=== PATIENT | male | born 1995 ===

== ENCOUNTER → 2025-01-30 11:30 | Outpatient (REF) | payer OTHER, SELFPAY ==
--- NOTE | 2025-01-30 11:36 | ECG_ITS ---
Test Reason : R/O ARRHYTHMIA Blood Pressure : */* mmHG Vent. Rate : 49 BPM Atrial Rate : 49 BPM P-R Int : 166 ms QRS Dur : 92 ms QT Int : 410 ms P-R-T Axes : 40 70 40 degrees QTcB Int : 370 ms Sinus bradycardia Otherwise normal ECG No previous ECGs available Referred By: Tere Kitchen Electronically Signed By: ADALBERTO FRANCIS
--- OUTSIDE RECORDS SUMMARY | 2025-01-30 13:03 | XMS_ITS | Clinical Summary ---
Author Organization Unknown Care Team Providers Care Iphone Developer Name Role Phone JENSEN RAMOS, BRANDY Unavailable Unavailable ELISABET RN, ITZEL Unavailable Unavailable Payers Payer Name Policy Type Policy Number Effective Date Expira tion Date [facility] [place] [place] [facility] [id number] MEDICAID [facility] [id number] Problems Condition Name Condition Details Condition Category Status Onset Date Resolution Date Last Treatment Date Treating Clinician Comments BIPOLAR DISORD, CRNT EPISODE MANIC SEVERE W PSYCH FEATURES Active 11-06 00:00: 00 Allergies, Adverse Reactions, Alerts Allergy Name Allergy Type Status Severity Reaction(s) Onset Date Inactive Date Treating Clinician Comments NKA Propensity to adverse reactions Active 2024-10 12:16:1 5 Medications Ordered Medication Name Filled Medication Name Start Date Stop Date Current Medication? Ordering Clinician Indication Dosage Frequency Signature (SIG) Comments Components Aristada 441 mg/1.6 mL suspension, extend.rel. IM syringe 11-13 00:00: 00 Yes [id number] 441 mg MONTHLY 441 mg MONTHLY (route: intramuscu lar) Med Classific ation: Central Nervous System Agents benztropine 0.5 mg tablet 11-13 00:00: 00 Yes [id number] 1 tablet 2 TIMES DAILY 1 tablet 2 TIMES DAILY (route: oral) Med Classific ation: Central Nervous System Agents clonidine HCl 0.2 mg tablet 11-13 00:00: 00 12-17 23:59 :00 No [id number] 1 tablet 3 TIMES DAILY 1 tablet 3 TIMES DAILY (route: oral) Med Classific ation: Cardiovas cular Therapy Agents divalproex 500 mg tablet,suzy yed release 11-13 00:00: 00 12-27 23:59 :00 No [id number] 500 mg EVERY AM 500 mg EVERY AM (route: oral) Med Classific ation: Central Nervous System Agents divalproex 500 mg tablet,suzy yed release 11-13 00:00: 00 Yes [id number] 1000 mg BEDTIME 1000 mg BEDTIME (route: oral) Med Classific ation: Central Nervous System Agents ibuprofen 600 mg tablet 11-13 00:00: 00 Yes [id number] 1 tablet EVERY 6 HOURS 1 tablet EVERY 6 HOURS (route: oral) Med Classific ation: Analgesic , Anti-infl ammatory or Antipyret ic melatonin 3 mg tablet 11-13 00:00: 00 12-17 23:59 :00 No [id number] 9 mg BEDTIME 9 mg BEDTIME (route: oral) Med Classific ation: Central Nervous System Agents multivitami n with minerals tablet 11-13 00:00: 00 Yes [id number] 1 tablet DAILY 1 tablet DAILY (route: oral) Med Classific ation: Electroly te Balance-N utritiona l Products olanzapine 10 mg tablet 11-13 00:00: 00 12-17 23:59 :00 No [id number] 10 mg BEDTIME 10 mg BEDTIME (route: oral) Med Classific ation: Central Nervous System Agents Senna Lax 8.6 mg tablet 11-13 00:00: 00 Yes [id number] 2 tablet 2 TIMES DAILY 2 tablet 2 TIMES DAILY (route: oral) Med Classific ation: Gastroint estinal Therapy Agents Suboxone 4 mg-1 mg sublingual film 11-13 00:00: 00 Yes [id number] 1 film 2 TIMES DAILY 1 film 2 TIMES DAILY (route: sublingual ) Med Classific ation: Chemical Dependenc y, Agents to Treat clonidine HCl 0.1 mg tablet 12-17 00:00: 00 Yes [id number] 1 tablet 2 TIMES DAILY 1 tablet 2 TIMES DAILY (route: oral) Med Classific ation: Cardiovas cular Therapy Agents melatonin 3 mg disintegrat ing tablet 12-17 00:00: 00 Yes [id number] 3 tablet BEDTIME 3 tablet BEDTIME (route: oral) Med Classific ation: Central Nervous System Agents olanzapine 5 mg tablet 12-17 00:00: 00 12-27 23:59 :00 No [id number] 5 mg BEDTIME 5 mg BEDTIME (route: oral) Med Classific ation: Central Nervous System Agents olanzapine 7.5 mg tablet 12-27 00:00: 00 Yes [id number] 7.5 mg BEDTIME 7.5 mg BEDTIME (route: oral) Med Classific ation: Central Nervous System Agents sertraline 25 mg tablet 12-27 00:00: 00 Yes [id number] 25 mg DAILY 25 mg DAILY (route: oral) Med Classific ation: Central Nervous System Agents Vital Signs Vital Name Observation Time Observation Value Commen ts Temperature 2025-01-22 10:33:00.000 98 [degF] Temperature 2025-01-17 10:49:00.000 97.2 [degF] Temperature 2025-01-16 10:48:00.000 97.9 [degF] Pulse 2025-01-22 10:33:00.000 86 /min Pulse 2025-01-17 10:49:00.000 86 /min Pulse 2025-01-16 10:48:00.000 66 /min O2 Saturation (%) 2025-01-22 10:33:00.000 98 % O2 Saturation (%) 2025-01-17 10:49:00.000 98 % O2 Saturation (%) 2025-01-16 10:48:00.000 97 % Respirations 2025-01-22 10:33:00.000 18 /min Respirations 2025-01-17 10:49:00.000 18 /min Respirations 2025-01-16 10:48:00.000 18 /min Systolic Blood Pressure 2025-01-22 10:33:00.000 116 mm [Hg] Systolic Blood Pressure 2025-01-17 10:49:00.000 112 mm [Hg] Systolic Blood Pressure 2025-01-16 10:48:00.000 110 mm [Hg] Diastolic Blood Pressure 2025-01-22 10:33:00.000 74 mm [Hg] Diastolic Blood Pressure 2025-01-17 10:49:00.000 80 mm [Hg] Diastolic Blood Pressure 2025-01-16 10:48:00.000 86 mm [Hg] Plan of Treatment Planned Activity Planned Date Details Comments Future Scheduled Test SKILLED NU RSE TO EVALUATE PATIENT, IDENTIFY PRIMARY AND CO-MORBID CONDITIONS CODED PER CODING GUIDELINES, AND DEVELOP PATIENT SPECIFIC PLAN OF CARE THAT INCLUDES PATIENT GOAL FOR HOME HEALTH. [code = SKILLED NURSE TO EVALUATE PATIENT, IDENTIFY PRIMARY AND CO-MORBID CONDITIONS CODED PER CODING GUIDELINES, AND DEVELOP PATIENT SPECIFIC PLAN OF CARE THAT INCLUDES PATIENT GOAL FOR HOME HEALTH.] Future Scheduled Test SKILLED NU RSE TO PRE-POUR MEDICATION PER MEDICATION LIST (FREQUENCY). [code = SKILLED NURSE TO PRE-POUR MEDICATION PER MEDICATION LIST (FREQUENCY).] Future Scheduled Test PATIENT MA Y HAVE ONE SET OF EMERGENCY MEDICATION NOT TO BE PRE-POURED ANY SOONER THAN 24 HOURS BEFORE SEVERE INCLEMENT WEATHER OR EMERGENT EVENT AND FOLLOWING SKILLED NURSE EVALUATION OF PATIENT SAFETY. [code = PATIENT MAY HAVE ONE SET OF EMERGENCY MEDICATION NOT TO BE PRE-POURED ANY SOONER THAN 24 HOURS BEFORE SEVERE INCLEMENT WEATHER OR EMERGENT EVENT AND FOLLOWING SKILLED NURSE EVALUATION OF PATIENT SAFETY.] Future Scheduled Test SKILLED NU RSE TO O/A OF PATIENTS MENTAL/BEHAVIORAL STATUS, ASSESS VITAL SIGNS (FREQUENCY OF VS), ALLOW 2 PRNS FOR MEDICATION MANAGEMENT. [code = SKILLED NURSE TO O/A OF PATIENTS MENTAL/BEHAVIORAL STATUS, ASSESS VITAL SIGNS (FREQUENCY OF VS), ALLOW 2 PRNS FOR MEDICATION MANAGEMENT.] Future Scheduled Test SKILLED NU RSE FOR O/A OF ALTERED MOOD [code = SKILLED NURSE FOR O/A OF ALTERED MOOD] Future Scheduled Test SKILLED NU RSE FOR O/A OF GENERAL HEALTH STATUS OF PAIN, CARDIAC, RESPIRATORY, GASTROINTESTINAL, GENITOURINARY, SKIN, NEUROLOGIC, ENDOCRINE SYSTEMS TO IDENTIFY CHANGES ASSOCIATED WITH EXACERBATION FOR EARLY INTERVENTION OF COMPLICATIONS WEEKLY. [code = SKILLED NURSE FOR O/A OF GENERAL HEALTH STATUS OF PAIN, CARDIAC, RESPIRATORY, GASTROINTESTINAL, GENITOURINARY, SKIN, NEUROLOGIC, ENDOCRINE SYSTEMS TO IDENTIFY CHANGES ASSOCIATED WITH EXACERBATION FOR EARLY INTERVENTION OF COMPLICATIONS WEEKLY.] Future Scheduled Test SKILLED NU RSE TO ASSESS PATIENTS PSYCHOSOCIAL STATUS TO IDENTIFY POTENTIAL ISSUES THAT MAY COMPLICATE THE PROVISION OF THE PLAN OF CARE INCLUDING THE PATIENTS ABILITY TO ACCESS COMMUNITY RESOURCES AND PSYCHOSOCIAL SUPPORT SERVICES. [code = SKILLED NURSE TO ASSESS PATIENTS PSYCHOSOCIAL STATUS TO IDENTIFY POTENTIAL ISSUES THAT MAY COMPLICATE THE PROVISION OF THE PLAN OF CARE INCLUDING THE PATIENTS ABILITY TO ACCESS COMMUNITY RESOURCES AND PSYCHOSOCIAL SUPPORT SERVICES.] Future Scheduled Test SN TO INST RUCT CAREGIVER ON MANAGEMENT OF DEMENTIA UTILIZING THE MEANINGFUL CARE SPECIALTY PROGRAM. [code = SN TO INSTRUCT CAREGIVER ON MANAGEMENT OF DEMENTIA UTILIZING THE MEANINGFUL CARE SPECIALTY PROGRAM.] Future Scheduled Test SKILLED NU RSE WILL MAINTAIN SITUATIONAL AWARENESS FOR SAFETY AND WILL NOTIFY CLINICAL SEISMOGRAPHER AND PHYSICIAN/PROVIDER WITH ANY CHANGE IN CONDITION. [code = SKILLED NURSE WILL MAINTAIN SITUATIONAL AWARENESS FOR SAFETY AND WILL NOTIFY CLINICAL SEISMOGRAPHER AND PHYSICIAN/PROVIDER WITH ANY CHANGE IN CONDITION.] Goal 2025-01-08 Patient Goal - REDUCE MY ANX IETY Goal Patient Goal - REDUCE MY ANX IETY Goal Provider Goal - A PLAN OF CARE WILL BE ESTABLISHED THAT MEETS PATIENT'S [facility] NEEDS AND INCLUDES PATIENT GOAL FOR HOME HEALTH. Goal Provider Goal - PATIENT WILL COMPLY WITH MEDICATION WHEN SKILLED NURSE PRE-POURS MEDICATION THROUGHOUT CERTIFICATION PERIOD. Goal Provider Goal - MEDICATION WILL BE AVAILABLE DURING INCLEMENT WEATHER OR EMERGENT EVENT THROUGHOUT CERTIFICATION PERIOD. Goal Provider Goal - ALTERED MENTAL/BEHAVIORAL STATUS WILL BE IDENTIFIED PROMPTLY AND INTERVENTION INITIATED QUICKLY TO MINIMIZE ASSOCIATED RISKS THROUGHOUT CERTIFICATION PERIOD. Goal Provider Goal - PATIENT WILL BE ABLE TO PERFORM DAILY FUNCTIONS AND HAVE OPTIMAL IMPROVEMENT IN MOOD STABILITY THROUGHOUT CERTIFICATION PERIOD. Goal Provider Goal - CHANGE IN GENERAL HEALTH STATUS WILL BE IDENTIFIED AND REPORTED TO PHYSICIAN FOR PROMPT INTERVENTION TO MINIMIZE ASSOCIATED RISKS THROUGHOUT CERTIFICATION PERIOD. Goal Provider Goal - PSYCHOSOCIAL NEEDS WILL BE IDENTIFIED AND PLAN IMPLEMENTED TO MINIMIZE RISK THROUGHOUT CERTIFICATION PERIOD. Goal Provider Goal - CAREGIVER WILL DEMONSTRATE MANAGEMENT AND UNDERSTANDING OF DEMENTIA A RESULT OF PARTICIPATION IN THE MEANINGFUL CARE SPECIALTY PROGRAM. Goal Provider Goal - PATIENT WILL REMAIN SAFE IN THE COMMUNITY AND WILL BE FREE OF DANGER TO SELF AND OTHERS THROUGHOUT THE CERTIFICATION PERIOD. Progress Notes Progress Notes <paragraph>[Visit Date: 2024 by ITZEL BHANDARI RN]:</paragraph><paragraph>5 ARISTADA INJECTION GIVEN LEFT DELTOID WITHOUT ISSUE.</paragraph> <paragraph>[Visit Date: 2024 by ITZEL BHANDARI RN]:</paragraph><paragraph>PT WILL BE ATTENDING PARTIAL HOSPITALIZATION PROGRAM 9-2 PM STARTING PT FORGOT ABOUT NURSE VISIT AND WAS SLEEPING WHEN NURSE ARRIVED. PT MOOD GAURDED, QUESTIONING WHY NURSE WAS ASKING SO MANY QUESTIONS. NURSE EXPLAINED TO PT THAT EMOTIONAL AND BEHAVIORAL ASSESSMENT WAS BEING PERFORMED. PT INFORMED NURSE THAT HE WAS STARTING PARTIAL HOSPITALIZATION PROGRAM NEXT WEEK.</paragraph> Encounters Start Date/Time End Date/Time Encounter Type Admission Type Attending [facility] Facility Care Department Encounter ID Discharge Date Discharge Status Discharge Condition Discharge Reason Percent Goals Met 2025-01-12 00:00:00 2025-03-12 00:00:00 Outpatient ITZEL GUERRA [facility] [id number]
--- OUTSIDE RECORDS SUMMARY | 2025-01-30 13:04 | XMS_ITS | Patient Health Record ---
Author Organization Jose Grossman III, MD Address [address] [place] [address] Care Team Providers Care Manager Regulatory Name Role Phone GrossmanJose sawyer Unavailable [phone] Reason For Referral No Information Encounters Encounter Location Date Provider Diagnosis Jose Grossman III, MD [address] [place] [address] [place] [address] 01/27/2025 Jose Grossman Plan Of Treatment Next Appt Details Provider Name:Jose Grossman, 04/01/2025 02:00:00 PM, [address] [place] [address] YV[address] GONZALEZ, [place], [address], Insurance Providers Payer Name Payer Address Payer Phone Subscriber Number Group Number Insured Name Patient Relationship to Insured Coverage Start Date Coverage End Date MEDICAID [place] [address] [place] [id number] Shoaib Mclaughlin Self - patient is the insured
--- OUTSIDE RECORDS SUMMARY | 2025-01-30 13:04 | XMS_ITS | Clinical Summary ---
Author Organization [facility] Address [address] [place] [address] Care Team Providers Care Financial Analyst Name Role Phone Patient, Has No Pcp Or Ref Primary Care Provider Unavailable Allergies No known active allergies Medications * This document contains information received from the source organization and may not represent a complete record from that organization. No known medications Social History Tobacco Use Types Packs/Day Years Used Date Smoking Tobacco: Every Day Smokeless Tobacco: Never Alcohol Use Standard Drinks/Week Comments Not Currently 0 (1 standard drink = 0.6 oz pur e alcohol) in detox Sex and Gender Information Value Date Recorded Sex Assigned at Not on file Legal Sex Male 10:17 AM EST Gender Identity Not on file Sexual Orientation Not on file Last Filed Vital Signs Vital Sign Reading Time Taken Comments Blood Pressure 113/71 11/27/2021 11:04 AM EST Pulse 66 11/27/2021 11:04 AM EST Temperature 36.9 ??C (98.5 ??F) 11/27/2021 11:[address] Respiratory Rate 18 11/27/2021 11:04 AM EST Oxygen Saturation 98% 11/27/2021 11:04 AM EST Inhaled Oxygen Concentration - - Weight 88.5 kg (195 lb) 11/27/2021 11:04 AM EST Height 180.3 cm (5' 11 ) 11/27/2021 11:04 AM EST Body Mass Index 27.2 11/27/2021 11:04 AM EST Plan of Treatment Health Maintenance Due Date Last Done Comments HIV Screening 1993 Hepatitis B Vaccines (4 of 4 - 4-dose series) 02/16/1994 1993, 1993, 1993 Varicella Vaccines (1 of 2 - 13+ 2-dose series) 2006 Pneumococcal Vaccine: Pediat ameya (0-5 Years) and At-Risk Patients (6-50 Years) (1 of 2 - PCV) 2012 COVID-19 Vaccine (1 - 2023-2 5 season) 2024 Alcohol/Substance Use Screening 09/25/2024 Influenza Vaccine (Season Ended) 2025 07/20/2009, 07/12/2008, 07/13/2007 DTaP,Tdap,and Td Vaccines (9 - Td or Tdap) 04/27/2031 04/27/2021, 10/24/2018, 08/27/2008, Additional history exists RSV Vaccine (60+ years old a nd patients) (1 - 1-dose 75+ series) 2068 Insurance [employer] Care Teams Financial Analyst Relationship Specialty Start Date End Date Patient, Has No Pcp Or Ref DO NOT EDIT THIS RECORD VIA PROVIDER ON THE FLY PCP - General Nutrition Professor 10/30/21
--- OUTSIDE RECORDS SUMMARY | 2025-01-30 13:04 | XMS_ITS | Encounter Summary ---
Author Organization [facility] Address [address] [place], [place] [address] Phone Care Team Providers Care Corrosion Control Technician Name Role Phone Unavailable Primary Care Provider Unavailabl e Encounter Details Date Type Department Care Team (Late st Contact Info) Description 10/14/2009 Documentation [facility] Family Medicine [address] [place] [address] Family Medicine, Physician [address] [place] [address] Social History Tobacco Use Types Packs/Day Years Used Date Smoking Tobacco: Never Assessed Sex and Gender Information Value Date Recorded Sex Assigned at Not on file Legal Sex Male 6:11 PM EDT Gender Identity Not on file Sexual Orientation Not on file documented as of this encounter Plan of Treatment Not on file documented as of this encounter Visit Diagnoses Not on filedocumented in this encounter
--- OUTSIDE RECORDS SUMMARY | 2025-01-30 13:04 | XMS_ITS ---
Author Organization Jose Grossman III, MD Address [address] [address] Care Team Providers Care Psychology Fellow Name Role Phone Jose Grossman [facility] [phone] REASON FOR VISIT Updated Address Encounters Encounter Location Date Provider Diagnosis Jose Grossman III, MD [address] [place] [address] [place] [address] 01/27/2025 Jose Grossman Plan Of Treatment Next Appt Details Provider Name:Jose Grossman, 04/01/2025 02:00:00 PM, [address] [place] [address] YV[address] GONZALEZ, [place], [address], Progress Notes * KELVIN CARLRAYRAY ShoaibDOB: [birth year] (29 yo M)Acc No.[id number]:01/27/2025 Patient:?Shoaib MCLAUGHLIN :1995???Age:29 Y???Sex:Male Phone: Address:[address], [place], [address] * true * Date:? Generated for Robert sands/Emeli/eTransmitting on:?01/30/2025 01:03 PM EDT
--- OUTSIDE RECORDS SUMMARY | 2025-01-30 13:04 | XMS_ITS | Referral Summary ---
Author Organization [facility] Address [address] [place] [address] Care Team Providers Care Certified Fraud Examiner Name Role Phone Patient, Has No Pcp [...] 11/27/2021 11:04 AM EST Plan of Treatment [place] [id number] [employer] Care Teams Certified Fraud Examiner Relationship Specialty Start Date End Date Patient, Has No Pcp Or Ref DO NOT EDIT THIS RECORD VIA PROVIDER ON THE FLY PCP - General Print Shop Assistant 10/30/21
--- OUTSIDE RECORDS SUMMARY | 2025-01-30 13:04 | XMS_ITS | Data Portability ---
Author Organization [place] [facility], Allergy Address [address] [address] Assessment Encounter Date Assessment Date Assessment LastModified by Organization Details LastModified Time 03/06/2024 03/06/2024 Patient came for a third opinion regarding right angle of mandible mass. He has previously seen my colleague Dr. Ceballos, he has had a second opinion with nursing informatics clinical analyst in [place] Dr. Cruz and we are all in agreement that he does not have any irregular mass in the right angle of mandible, parotid tissue. 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 I do not believe this is corroborated by any of his imaging studies although his MRI that was performed in [place] is not available for my review today. I explained with diagrams the location of Stensen's duct that corresponds to the nodules he feels over his masseter muscle just anterior to his parotid. I would strongly recommend he follow-up with his primary care provider and seek psychiatric consultation as he appears to be unable to except multiple similar medical opinions [email or web address] Not available 03/06/2024 16:12:35 Plan of Treatment Reminders Order Date Submit Date Provider Last Modified By Organization Details Last Modified Time Details Appointments None record ed. Lab None record ed. Referral None record ed. Procedures None record ed. Surgeries None record ed. Imaging None record ed. Medication Orders None record ed. Patient TargetsNo targets recorded. Patient InstructionsNo instructions recorded. Reason for Referral None Reported. Results Created Date Observation Date Name Description Value Unit Range Abnormal Flag Note LastModifiedBy Organization Detail LastModifiedTime 05/15/2003/09/2023 imagi ng/di agnos tic resul t No observ ation record ed. [email or web address] Not Available 00:50:14 Result Notes None recorded. 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 - [facility] 16:10:42 Problem Notes None recorded. Procedures Surgical History None recorded. Imaging Results Imaging Date Name Status LastModified by Organiz ation Details LastModified Time 03/09/2023 imaging/diag nostic result completed [email or web address] Information not available 05/15/2024 00:50:14 Procedure Notes None recorded. Medical Equipment None Reported. Medications Name Sig Start Date Stop Date Status Note LastModified by Organization Details LastModified Time clonidine HCl 0.1 mg tablet TAKE 1 TABLET BY MOUTH TWICE A DAY NEEDED active Not Available Not Available No t Available trazodone 50 mg tablet TAKE 1 TABLET BY MOUTH AT BEDTIME NEEDED active Not Available Not Available No t Available ibuprofen 800 mg tablet TAKE 1 TABLET BY MOUTH THREE TIMES A DAY NEEDED FOR PAIN active Not Available Not Available No t Available hydroxyzine pamoate 50 mg capsule TAKE 1 CAPSULE BY MOUTH 3 TIMES A DAY NEEDED FOR ANXIETY active Not Available Not Available No t Available olanzapine 2.5 mg tablet TAKE 1 TABLET BY MOUTH EVERYDAY AT BEDTIME active Not Available Not Available No t Available methocarbamol 750 mg tablet TAKE 1 TABLET BY MOUTH EVERY 8 HOURS NEEDED FOR MYALGIAS active Not Available Not Available No t Available Suboxone 8 mg-[address] FILMS UNDER THE TONGUE DAILY active Not Available Not Available No t Available Suboxone 4 mg-1 mg sublingual film DISSOLVE 1 FILM UNDER TONGUE ONCE A DAY active Not Available Not Available No t Available Vitals Date Recorded Body height Body mass index (BMI) Body weight Provider Name and Address Organization Details Last Updated DateTime 03/06/2024 180.34 cm 30.7 kg/m2 44717.32 g Hermelinda Ramon [place] [facility] 03/06/2024 15:31:05 Social History None recorded. Functional Status None recorded. Mental Status None recorded. Family History Nothing Reported. Medical History No medical history recorded. Past Encounters Encounter ID Performer Location Encounter Start Date Encounter Closed Date Diagnosis/Indication Diagnosis SNOMED-CT Code Diagnosis ICD10 Code Diagnosis Note [id number] PEGGY KEENE MD [facility] [address] [address] 03/06/2024 15:10:15 03/06/2024 16:15:21 Facial swelling 845377070 R22.0 Health Concerns Section Related Observation LastModified by Organization Detai ls LastModified Time None Recorded Concern Status LastModified by Organization Details LastModified Time None Recorded Advance Directives Directive None Recorded Payers Insurance Date Sequence Insurance Name Policy Number Policy Lr Covered Member ID Lr Member ID Guarantor Name 04/23/2024 1 [facility]ALTH NET PLAN (MEDICAID HMO) [id number] Shoaib Muñoz [id number] Shoaib Muñoz Notes Date Note Type Note Provider Name and Address Organization Details Recorded Time 03/06/2024 text/html Around 10/2022 no felipe a lump behind right angle of jaw. Patient of Dr. 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 Over time he has begun to appreciate enlargement of the right parotid gland. He was last evaluated by Dr. 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 He underwent an additional imaging study 09/10/2023 CT facial with contrast at [facility] with atrophic left parotid gland and normal right parotid gland. 09/2023 MRI [facility] - results not available - was told it is inconclusive no pain in the neck,feels substantially larger PEGGY KEENE MD [address] [place] [address], [place], [address], [facility] - [facility] 03/06/2024 16:13:07
--- OUTSIDE RECORDS SUMMARY | 2025-01-30 13:04 | XMS_ITS | Clinical Summary ---
Author Organization [facility] Address [address] [place] [address] Care Team Providers Care Operational Risk Manager Name Role Phone Unavailable Primary Care Provider Unavailabl e Allergies No known active allergies Medications oxyCODONE (OXY-IR) 5 MG capsule Take 1 capsule (5 mg total) by mouth 4 times daily (every 6 hours) as needed for severe pain. Max Daily Amount: 20 mg 12 capsule 04/27/2021 Active ibuprofen (MOTRIN) 800 mg tabletIndicatio ns:Facial laceration, initial encounter Take 1 tablet (800 mg total) by mouth 4 times daily (every 6 hours) as needed for mild pain. 30 tablet 04/30/2021 Active acetaminophen (TYLENOL) 500 MG tabletIndicatio ns:Facial laceration, initial encounter Take 1 tablet (500 mg total) by mouth 4 times daily (every 6 hours) as needed for mild pain. 30 tablet 04/30/2021 Active cephalexin (KEFLEX) 500 MG capsuleIndicati ons:Facial laceration, initial encounter Take 1 capsule (500 mg total) by mouth 3 (three) times a day. 21 capsule 04/30/2021 Active Immunizations Immunization Administration Dates Next Due Tdap 04/27/2021 Social History Tobacco Use Types Packs/Day Years Used Date Smoking Tobacco: Never Assessed Sex and Gender Information Value Date Recorded Sex Assigned at Not on file Legal Sex Male 2:44 PM EDT Gender Identity Not on file Sexual Orientation Not on file Last Filed Vital Signs Vital Sign Reading Time Taken Comments Blood Pressure 149/90 04/27/2021 9:29 PM EDT Pulse 81 04/27/2021 9:29 PM EDT Temperature 36.2 ??C (97.1 ??F) 04/27/2021 7:38 PM ED T Respiratory Rate 16 04/27/2021 7:38 PM EDT Oxygen Saturation 96% 04/27/2021 9:29 PM EDT Inhaled Oxygen Concentration - - Weight - - Height - - Body Mass Index - - Plan of Treatment Health Maintenance Due Date Last Done Comments Hepatitis C Virus Screening 1993 HIV Screening 2006 Hepatitis B Vaccines (1 of 3 - 19+ 3-dose series) 2012 COVID-19 Vaccine (2023-2 5 season) 2024 Influenza Vaccine 04/25/2025 DTaP/Tdap/Td Vaccines (2 - T d or Tdap) 04/27/2031 04/27/2021 HPV Vaccines Aged Out No longer eligi ble based on patient's age to complete this topic Pneumococcal Vaccine: Pediat ameya (0-5 Years) and At-Risk Patients (6 to 49 Years) Aged Out No longer eligible b ased on patient's age to complete this topic Insurance [facility]
--- OUTSIDE RECORDS SUMMARY | 2025-01-30 13:04 | XMS_ITS | Clinical Summary ---
Author Organization [facility] Address [address] [place] [address] Phone Care Team Providers Care Vineyardist Name Role Phone Unavailable Primary Care Provider Unavailabl e Immunizations Immunization Administration Dates Next Due DTaP 08/27/1998, 7,04/18/1995,03/03,1993 H1N1 07/20/2009 Hep A, ped/adol 07/12/2012 Hep B, ped/adol 1993,1993,1993 Hib (PRP-T) 11/23/1994,03/03/1994,01/01/1994 IPV 08/27/1998, 4,01/01/1994,11/26 Influenza 07/13/2007 Influenza, injectable, quadrivalent 02/2012,06/18/2011,07/08/2010,06/20,07/13/2004 Influenza, injectable, quadr ivalent, preservative free 07/12/2008 MMR 08/27/1998,11/23/1994 Meningococcal Conj (Menactra) MCV4P 09/12/2011,1 10/22/2006 Td (adult) (Tenivac), 5 Lf t etanus toxoid, PF, adsorbed 08/13/2003 Tdap 08/27/2008 Unknown Vaccine 07/12/2012 Family History Relation Name Status Comments Father Alive healthy Maternal Grandmother Alive Mother Alive in remission fr om hodgekins disease. Other Siblings: other non related adopted serbian kids one sister and two brothers Social History Tobacco Use Types Packs/Day Years Used Date Smoking Tobacco: Never Assessed Sex and Gender Information Value Date Recorded Sex Assigned at Not on file Legal Sex Male 6:11 PM EDT Gender Identity Not on file Sexual Orientation Not on file Last Filed Vital Signs Vital Sign Reading Time Taken Comments Blood Pressure 120/60 07/20/2012 12:00 AM EDT Pulse - - Temperature 37.2 ??C (99 ??F) 07/20/2012 12: 00 AM EDT Respiratory Rate - - Oxygen Saturation - - Inhaled Oxygen Concentration - - Weight 87.9 kg (193 lb 12.8 oz) 012 12:00 AM EDT Height 179.7 cm (5' 10.75 ) 07/20/2012 12:00 AM EDT Body Mass Index 27.22 07/20/2012 12:00 AM EDT Plan of Treatment Health Maintenance Due Date Last Done Comments Hepatitis B Vaccines (4 of 4 - 4-dose series) 02/16/1994 1993, 1993, 1993 Varicella Vaccines (1 of 2 - 13+ 2-dose series) 2006 Hepatitis A Vaccines (2 of 2 - 2-dose series) 01/10/2013 07/12/2012 DTaP,Tdap,and Td Vaccines (7 - Td or Tdap) 08/27/2018 08/27/2008, 08/13/2003, 08/27/1998, Additional history exists Influenza Vaccines (#1) 2024 06/30/20, 06/18/2011, 07/08/2010, Additional history exists COVID-19 Vaccine ( season) 2024 HIB Vaccines Completed 11/23/1994, 05/1994, 01/01/1994 IPV Vaccines Completed 08/27/1998, 05/1994, 01/01/1994, Additional history exists MMR Vaccines Completed 08/27/1998, 11/23/1994 Meningococcal Vaccine Completed 09/12/2011, 007 HPV Vaccines Aged Out No longer eligi ble based on patient's age to complete this topic Men B Vaccine Aged Out No longer elig ible based on patient's age to complete this topic Pneumococcal Vaccine Aged Out No long er eligible based on patient's age to complete this topic
--- OUTSIDE RECORDS SUMMARY | 2025-01-30 13:04 | XMS_ITS | Encounter Summary ---
Author Organization [facility] Address [address] [place] [phone] Phone Care Team Providers Care Drug Safety Specialist Name Role Phone Unavailable Primary Care Provider Unavailabl e Encounter Details Date Type Department Care Team (Late st Contact Info) Description 02/11/2018 [facility]counter [facility] [address] [address] Social History Tobacco Use Types Packs/Day Years [...]
== END ==
LOC: HO.CARD 11:30
PROVIDERS: Visit Provider Psychiatry & Neurology Psychiatry
DX: I49.9 Cardiac arrhythmia, unspecified (principal); F31.5 Bipolar disorder, current episode depressed, severe, with psychotic features
CPT/HCPCS: 93005

== ENCOUNTER → 2025-01-30 11:36 | Outpatient (BNV) | payer OTHER, SELFPAY | PROVIDERS: Visit Provider Internal Medicine | DX: R00.1 Bradycardia, unspecified (principal) | CPT/HCPCS: 93010 ==

== ENCOUNTER 2025-01-30 12:51 | Outpatient (REF) | payer OTHER, SELFPAY ==
--- OUTSIDE RECORDS SUMMARY | 2025-01-31 12:55 | XMS_ITS | Encounter Summary ---
Author Organization [facility] Address [address] [place], [place] [id number] Phone Care Team Providers Care Fish Packer Name Role Phone Unavailable Primary Care Provider Unavailabl e Encounter Details Date Type Department Care Team (Late st Contact Info) Description 10/14/2009 Documentation [facility] Family Medicine [address] [place] [address] Family Medicine, Physician [address] [place] [address] Social History Tobacco Use Types Packs/Day Years [...]
--- OUTSIDE RECORDS SUMMARY | 2025-01-31 12:55 | XMS_ITS | Clinical Summary ---
Author Organization [facility] Address [address] [place] [address] Phone Care Team Providers Care Hatchery Manager Name Role Phone Unavailable Primary Care [...] disease. Other Siblings: other non related adopted kazakh kids one sister and two brothers Social [...]
--- OUTSIDE RECORDS SUMMARY | 2025-01-31 12:55 | XMS_ITS | Encounter Summary ---
Author Organization [facility] Address [address] [place] [address] Phone Care Team Providers Care Group Managing Director Name Role Phone Unavailable Primary Care Provider Unavailabl e Encounter Details Date Type Department Care Team (Late st Contact Info) Description 02/11/2018 Con[facility] Encounter [facility] [address] [address] Social History Tobacco Use Types Packs/Day Years [...]
--- OUTSIDE RECORDS SUMMARY | 2025-01-31 12:55 | XMS_ITS | Clinical Summary ---
Author Organization [facility] Address [address] [place] [address] Care Team Providers Care Mycologist Name Role Phone Patient, Has No Pcp [...] series) 2068 Insurance [employer] Care Teams Mycologist Relationship Specialty Start Date End Date Patient, Has No Pcp Or Ref DO NOT EDIT THIS RECORD VIA PROVIDER ON THE FLY PCP - General Washtub Worker 10/30/21
--- OUTSIDE RECORDS SUMMARY | 2025-01-31 12:56 | XMS_ITS | Clinical Summary ---
Author Organization [facility] Address [address] [place] [address] Care Team Providers Care Hub Borer Name Role Phone Unavailable Primary Care Provider [...] patient's age to complete this topic Insurance [facility]
--- OUTSIDE RECORDS SUMMARY | 2025-01-31 12:56 | XMS_ITS | Referral Summary ---
Author Organization [facility] Address [address] [place] [address] Care Team Providers Care Transfer Specialist Name Role Phone Patient, Has No Pcp [...] Treatment [place] [address] [place] [address] Care Teams Transfer Specialist Relationship Specialty Start Date End Date Patient, Has No Pcp Or Ref DO NOT EDIT THIS RECORD VIA PROVIDER ON THE FLY PCP - General Supervisor Major Appliance Assembly 10/30/21
--- OUTSIDE RECORDS SUMMARY | 2025-01-31 12:56 | XMS_ITS | Clinical Summary ---
Author Organization Unknown Care Team Providers Care Secondary Art Teacher Name Role Phone JENSEN RAMOS, BRANDY Unavailable Unavailable ELISABET RN, ITZEL Unavailable Unavailable Payers Payer Name Policy Type Policy Number Effective Date Expira tion Date [facility] [id number] MEDICAID [facility] [id number] Problems Condition Name Condition Details Condition Category [...] extend.rel. IM syringe 11-13 00:00: 00 Yes [id number] 441 mg MONTHLY 441 mg MONTHLY (route: intramuscu lar) Med Classific ation: Central Nervous System Agents benztropine 0.5 mg tablet 11-13 00:00: 00 Yes [id number] 1 tablet 2 TIMES DAILY 1 tablet 2 TIMES DAILY (route: oral) Med Classific ation: Central Nervous System Agents clonidine HCl 0.2 mg tablet 11-13 00:00: 00 12-17 23:59 :00 No [id number] 1 tablet 3 TIMES DAILY 1 tablet 3 TIMES DAILY (route: oral) Med Classific ation: Cardiovas cular Therapy Agents divalproex 500 mg tablet,suzy yed release 11-13 00:00: 00 12-27 23:59 :00 No [id number] 500 mg EVERY AM 500 mg EVERY AM (route: oral) Med Classific ation: Central Nervous System Agents divalproex 500 mg tablet,suzy yed release 11-13 00:00: 00 Yes [id number] 1000 mg BEDTIME 1000 mg BEDTIME (route: oral) Med Classific ation: Central Nervous System Agents ibuprofen 600 mg tablet 11-13 00:00: 00 Yes [id number] 1 tablet EVERY 6 HOURS 1 tablet EVERY 6 HOURS (route: oral) Med Classific ation: Analgesic , Anti-infl ammatory or Antipyret ic melatonin 3 mg tablet 11-13 00:00: 00 12-17 23:59 :00 No [id number] 9 mg BEDTIME 9 mg BEDTIME (route: oral) Med Classific ation: Central Nervous System Agents multivitami n with minerals tablet 11-13 00:00: 00 Yes [id number] 1 tablet DAILY 1 tablet DAILY (route: oral) Med Classific ation: Electroly te Balance-N utritiona l Products olanzapine 10 mg tablet 11-13 00:00: 00 12-17 23:59 :00 No [id number] 10 mg BEDTIME 10 mg BEDTIME (route: oral) Med Classific ation: Central Nervous System Agents Senna Lax 8.6 mg tablet 11-13 00:00: 00 Yes [id number] 2 tablet 2 TIMES DAILY 2 tablet 2 TIMES DAILY (route: oral) Med Classific ation: Gastroint estinal Therapy Agents Suboxone 4 mg-1 mg sublingual film 11-13 00:00: 00 Yes [id number] 1 film 2 TIMES DAILY 1 film 2 TIMES DAILY (route: sublingual ) Med Classific ation: Chemical Dependenc y, Agents to Treat clonidine HCl 0.1 mg tablet 12-17 00:00: 00 Yes [id number] 1 tablet 2 TIMES DAILY 1 tablet 2 TIMES DAILY (route: oral) Med Classific ation: Cardiovas cular Therapy Agents melatonin 3 mg disintegrat ing tablet 12-17 00:00: 00 Yes [id number] 3 tablet BEDTIME 3 tablet BEDTIME (route: oral) Med Classific ation: Central Nervous System Agents olanzapine 5 mg tablet 12-17 00:00: 00 12-27 23:59 :00 No [id number] 5 mg BEDTIME 5 mg BEDTIME (route: oral) Med Classific ation: Central Nervous System Agents olanzapine 7.5 mg tablet 12-27 00:00: 00 Yes [id number] 7.5 mg BEDTIME 7.5 mg BEDTIME (route: oral) Med Classific ation: Central Nervous System Agents sertraline 25 mg tablet 12-27 00:00: 00 Yes [id number] 25 mg DAILY 25 mg DAILY (route: oral) Med Classific ation: Central Nervous System Agents Vital Signs Vital Name Observation Time Observation Value Commen ts Temperature 2025-01-31 08:22:00.000 97.9 [degF] Temperature 2025-01-30 14:26:00.000 98.1 [degF] Temperature 2025-01-22 10:33:00.000 98 [degF] Temperature 2025-01-17 10:49:00.000 97.2 [degF] Temperature 2025-01-16 10:48:00.000 97.9 [degF] Pulse 2025-01-31 08:22:00.000 86 /min Pulse 2025-01-30 14:26:00.000 82 /min Pulse 2025-01-22 10:33:00.000 86 /min Pulse 2025-01-17 10:49:00.000 86 /min Pulse 2025-01-16 10:48:00.000 66 /min O2 Saturation (%) 2025-01-31 08:22:00.000 98 % O2 Saturation (%) 2025-01-30 14:26:00.000 98 % O2 Saturation (%) 2025-01-22 10:33:00.000 98 % O2 Saturation (%) 2025-01-17 10:49:00.000 98 % O2 Saturation (%) 2025-01-16 10:48:00.000 97 % Respirations 2025-01-31 08:22:00.000 18 /min Respirations 2025-01-30 14:26:00.000 18 /min Respirations 2025-01-22 10:33:00.000 18 /min Respirations 2025-01-17 10:49:00.000 18 /min Respirations 2025-01-16 10:48:00.000 18 /min Systolic Blood Pressure 2025-01-31 08:22:00.000 120 mm [Hg] Systolic Blood Pressure 2025-01-30 14:26:00.000 110 mm [Hg] Systolic Blood Pressure 2025-01-22 10:33:00.000 116 mm [Hg] Systolic Blood Pressure 2025-01-17 10:49:00.000 112 mm [Hg] Systolic Blood Pressure 2025-01-16 10:48:00.000 110 mm [Hg] Diastolic Blood Pressure 2025-01-31 08:22:00.000 76 mm [Hg] Diastolic Blood Pressure 2025-01-30 14:26:00.000 78 mm [Hg] Diastolic Blood Pressure 2025-01-22 10:33:00.000 [...] CAREGIVER ON MANAGEMENT OF DEMENTIA UTILIZING THE [facility] CARE SPECIALTY PROGRAM. [code = SN TO INSTRUCT CAREGIVER ON MANAGEMENT OF DEMENTIA UTILIZING THE [facility] SPECIALTY PROGRAM.] Future Scheduled Test SKILLED NU RSE WILL MAINTAIN SITUATIONAL AWARENESS FOR SAFETY AND WILL NOTIFY CLINICAL COMMUNICATIONS ANALYST AND PHYSICIAN/PROVIDER WITH ANY CHANGE IN CONDITION. [code = SKILLED NURSE WILL MAINTAIN SITUATIONAL AWARENESS FOR SAFETY AND WILL NOTIFY CLINICAL COMMUNICATIONS ANALYST AND PHYSICIAN/PROVIDER WITH ANY CHANGE IN CONDITION.] Goal 2025-01-08 Patient Goal - REDUCE MY ANX IETY Goal Patient Goal - REDUCE MY ANX IETY Goal Provider Goal - A PLAN OF CARE WILL BE ESTABLISHED THAT MEETS PATIENT'S LONGTERM NEEDS AND INCLUDES PATIENT GOAL FOR HOME [...] DEMENTIA A RESULT OF PARTICIPATION IN THE [facility] CARE SPECIALTY PROGRAM. Goal Provider Goal - PATIENT WILL REMAIN SAFE IN THE COMMUNITY AND WILL BE FREE OF DANGER TO SELF AND OTHERS THROUGHOUT THE CERTIFICATION PERIOD. Progress Notes Progress Notes <paragraph>[Visit Date: 2024 by ITZEL BHANDARI RN]:</paragraph><paragraph>5 ARISTADA INJECTION GIVEN LEFT DELTOID WITHOUT ISSUE.</paragraph> Encounters Start Date/Time End Date/Time Encounter Type Admission Type Attending [facility] Care Department Encounter ID Discharge Date Discharge Status Discharge Condition Discharge Reason Percent Goals Met 2025-01-12 00:00:00 2025-03-12 00:00:00 Outpatient RECERTIFIC ITZEL PAZ [facility] [id number] .00
--- OUTSIDE RECORDS SUMMARY | 2025-01-31 12:56 | XMS_ITS | Patient Health Record ---
Author Organization Jose Grossman III, MD Address [address] [place] [address] Care Team Providers Care Biology Adjunct Instructor Name Role Phone GrossmanJose sawyer Unavailable [phone] Reason For Referral No Information Encounters Encounter Location Date Provider Diagnosis Jose Grossman III, MD [address] [place] [address] [place] [address] 01/27/2025 Jose Grossman Plan Of Treatment Next Appt Details Provider Name:Jose Grossman, 04/01/2025 02:00:00 PM, [address] [place] [address] Y[address] GONZALEZ, [place], [address], Insurance Providers Payer Name Payer Address Payer Phone Subscriber Number Group Number Insured Name Patient Relationship to Insured Coverage Start Date Coverage End Date MEDICAID [place] [address] [place] [id number] Shoaib Mclaughlin Self - patient is the insured
--- OUTSIDE RECORDS SUMMARY | 2025-01-31 12:56 | XMS_ITS | Clinical Summary ---
Author Organization Unknown Care Team Providers Care Construction Equipment Technician Name Role Phone JENSEN RAMOS, BRANDY Unavailable Unavailable ELISABET RN, ITZEL Unavailable Unavailable Payers Payer Name Policy Type Policy Number Effective Date Expira tion Date [facility] [id number] MEDICAID [facility] [id number] Problems Condition Name Condition Details Condition Category [...] extend.rel. IM syringe 11-13 00:00: 00 Yes [id number] 441 mg MONTHLY 441 mg MONTHLY (route: intramuscu lar) Med Classific ation: Central Nervous System Agents benztropine 0.5 mg tablet 11-13 00:00: 00 Yes [id number] 1 tablet 2 TIMES DAILY 1 tablet 2 TIMES DAILY (route: oral) Med Classific ation: Central Nervous System Agents clonidine HCl 0.2 mg tablet 11-13 00:00: 00 12-17 23:59 :00 No [id number] 1 tablet 3 TIMES DAILY 1 tablet 3 TIMES DAILY (route: oral) Med Classific ation: Cardiovas cular Therapy Agents divalproex 500 mg tablet,suzy yed release 11-13 00:00: 00 12-27 23:59 :00 No [id number] 500 mg EVERY AM 500 mg EVERY AM (route: oral) Med Classific ation: Central Nervous System Agents divalproex 500 mg tablet,suzy yed release 11-13 00:00: 00 Yes [id number] 1000 mg BEDTIME 1000 mg BEDTIME (route: oral) Med Classific ation: Central Nervous System Agents ibuprofen 600 mg tablet 11-13 00:00: 00 Yes [id number] 1 tablet EVERY 6 HOURS 1 tablet EVERY 6 HOURS (route: oral) Med Classific ation: Analgesic , Anti-infl ammatory or Antipyret ic melatonin 3 mg tablet 11-13 00:00: 00 12-17 23:59 :00 No [id number] 9 mg BEDTIME 9 mg BEDTIME (route: oral) Med Classific ation: Central Nervous System Agents multivitami n with minerals tablet 11-13 00:00: 00 Yes [id number] 1 tablet DAILY 1 tablet DAILY (route: oral) Med Classific ation: Electroly te Balance-N utritiona l Products olanzapine 10 mg tablet 11-13 00:00: 00 12-17 23:59 :00 No [id number] 10 mg BEDTIME 10 mg BEDTIME (route: oral) Med Classific ation: Central Nervous System Agents Senna Lax 8.6 mg tablet 11-13 00:00: 00 Yes [id number] 2 tablet 2 TIMES DAILY 2 tablet 2 TIMES DAILY (route: oral) Med Classific ation: Gastroint estinal Therapy Agents Suboxone 4 mg-1 mg sublingual film 11-13 00:00: 00 Yes [id number] 1 film 2 TIMES DAILY 1 film 2 TIMES DAILY (route: sublingual ) Med Classific ation: Chemical Dependenc y, Agents to Treat clonidine HCl 0.1 mg tablet 12-17 00:00: 00 Yes [id number] 1 tablet 2 TIMES DAILY 1 tablet 2 TIMES DAILY (route: oral) Med Classific ation: Cardiovas cular Therapy Agents melatonin 3 mg disintegrat ing tablet 12-17 00:00: 00 Yes [id number] 3 tablet BEDTIME 3 tablet BEDTIME (route: oral) Med Classific ation: Central Nervous System Agents olanzapine 5 mg tablet 12-17 00:00: 00 12-27 23:59 :00 No [id number] 5 mg BEDTIME 5 mg BEDTIME (route: oral) Med Classific ation: Central Nervous System Agents olanzapine 7.5 mg tablet 12-27 00:00: 00 Yes [id number] 7.5 mg BEDTIME 7.5 mg BEDTIME (route: oral) Med Classific ation: Central Nervous System Agents sertraline 25 mg tablet 12-27 00:00: 00 Yes [id number] 25 mg DAILY 25 mg DAILY (route: [...] CAREGIVER ON MANAGEMENT OF DEMENTIA UTILIZING THE [facility] CARE SPECIALTY PROGRAM. [code = SN TO INSTRUCT CAREGIVER ON MANAGEMENT OF DEMENTIA UTILIZING THE [facility] SPECIALTY PROGRAM.] Future Scheduled Test SKILLED NU RSE WILL MAINTAIN SITUATIONAL AWARENESS FOR SAFETY AND WILL NOTIFY CLINICAL MANAGER PERSONAL AND PHYSICIAN/PROVIDER WITH ANY CHANGE IN CONDITION. [code = SKILLED NURSE WILL MAINTAIN SITUATIONAL AWARENESS FOR SAFETY AND WILL NOTIFY CLINICAL MANAGER PERSONAL AND PHYSICIAN/PROVIDER WITH ANY CHANGE IN CONDITION.] Goal 2025-01-08 Patient Goal - REDUCE MY ANX IETY Goal Patient Goal - REDUCE MY ANX IETY Goal Provider Goal - A PLAN OF CARE WILL BE ESTABLISHED THAT MEETS PATIENT'S GROUP HOME NEEDS AND INCLUDES PATIENT GOAL FOR HOME [...] DEMENTIA A RESULT OF PARTICIPATION IN THE [facility] CARE SPECIALTY PROGRAM. Goal Provider Goal - PATIENT WILL REMAIN SAFE IN THE COMMUNITY AND WILL BE FREE OF DANGER TO SELF AND OTHERS THROUGHOUT THE CERTIFICATION PERIOD. Progress Notes Progress Notes <paragraph>[Visit Date: 2024 by ITZEL BHANDARI RN]:</paragraph><paragraph>5 ARISTADA INJECTION GIVEN LEFT DELTOID WITHOUT ISSUE.</paragraph> Encounters Start Date/Time End Date/Time Encounter Type Admission Type Attending [facility] Care Department Encounter ID Discharge Date Discharge Status Discharge Condition Discharge Reason Percent Goals Met 2025-01-12 00:00:00 2025-03-12 00:00:00 Outpatient RECERTIFIC ITZEL PAZ [facility] [id number]
--- OUTSIDE RECORDS SUMMARY | 2025-01-31 12:56 | XMS_ITS ---
Author Organization Jose Grossman III, MD Address [address] [place] [address] Care Team Providers Care Dope And Fabric Worker Name Role Phone Jose Grossman [facility] [phone] REASON FOR VISIT Updated Address Encounters Encounter Location Date Provider Diagnosis Jose Grossman III, MD [address] [place] [address] [place] [address] 01/27/2025 Jose Grossman Plan Of Treatment Next Appt Details Provider Name:Jose Grossman, 04/01/2025 02:00:00 PM, [address] [place] [address] YVETTE GONZALEZ, [place], [address], Progress Notes * KELVIN CARLRAYRAY ShoaibDOB: [birth year] (29 yo M)Acc No.[id number]:01/27/2025 Patient:?Shoaib MCLAUGHLIN :1995???Age:29 Y???Sex:Male Phone: Address:[address], [place], [address] * true * Date:? Generated for Robert sands/Emeli/eTransmitting on:?01/31/2025 12:55 PM EDT
[2025-01-31 13:12] LABS: Amphetamine Screen Urine Not Detected (Not Detect); Barbiturates, Urine Not Detected (Not Detect); Benzodiazepines Screen Urine Not Detected (Not Detect); Buprenorphine Scr Positive (Not Detect); Cannabinoid Screen Urine Not Detected (Not Detect); Cocaine Screen Urine Not Detected (Not Detect); Fentanyl, urine Not Detected (Not Detect); Methadone Screen, Urine Not Detected (Not Detect); Opiate Screen Urine POSITIVE (Not Detect); Oxycodone Screen Urine Not Detected (Not Detect); Phencyclidine Screen Urine Not Detected (Not Detect)
== END 2025-01-30 12:52 | disposition home or self-care (01) ==
LOC: HO.LNP 12:51
PROVIDERS: Visit Provider Psychiatry & Neurology Psychiatry
DX: F14.11 Cocaine abuse, in remission (principal); F11.21 Opioid dependence, in remission; F31.5 Bipolar disorder, current episode depressed, severe, with psychotic features
CPT/HCPCS: 80307

== ENCOUNTER 2025-02-04 14:00 | Outpatient (REF) | payer OTHER, SELFPAY ==
[2025-02-04 14:26] LABS: MANUAL DIFF FLAG NO
[2025-02-04 15:03] LABS: Basophils Percent Auto 0.5 % (0-2); Eosinophils Absolute Auto 0.1 X10*3/uL (0.0-0.4); Eosinophils Percent Auto 1.4 % (0-4); Hematocrit 44.5 % (42.0-52.0); Imm Gran Abs Auto 0.02 X10*3/uL (0.00-0.03); Imm Gran Pct Auto 0.3 % (0.0-0.4); Lymphocytes Absolute Auto 1.8 X10*3/uL (1.2-4.9); Lymphocytes Percent Auto 30.7 % (20-40); Mean Corpuscular HGB Conc 33.7 g/dl (31.0-36.0); Mean Corpuscular Hemoglobin 30.1 pg (27.0-33.0); Mean Corpuscular Volume 89.4 fL (80.0-98.0); Monocytes Absolute Auto 0.3 X10*3/uL (0.1-1.2); Monocytes Percent Auto 5.7 % (2-11); Neutrophils Absolute Auto 3.5 x10*3/uL (2.0-8.3); Neutrophils Percent Auto 61.4 % (45-73); Platelet Count 176 X10*3/uL (160-400); Red Blood Count 4.98 X10*6/uL (4.60-5.80); Red Cell Distribution Width 12.5 % (11.0-16.0); White Blood Count 5.8 X10*3/uL (4.8-10.8)
[2025-02-04 15:12] LABS: Estimated Average Glucose 105 mg/dL; Hemoglobin A1C 136.7503 umol/L; Hemoglobin A1c % 5.3 % (<6.0); Total Hemoglobin (HGBA1C) 3942.4835 umol/L
--- OUTSIDE RECORDS SUMMARY | 2025-02-04 15:12 | XMS_ITS | Clinical Summary ---
Author Organization [facility] Address [address] [place] [address] Care Team Providers Care Home Theater Specialist Name Role Phone Patient, Has No [...] series) [phone] Insurance [employer] Care Teams Home Theater Specialist Relationship Specialty Start Date End Date Patient, Has No Pcp Or Ref DO NOT EDIT THIS RECORD VIA PROVIDER ON THE FLY PCP - General [employer] Worker 10/30/21
--- OUTSIDE RECORDS SUMMARY | 2025-02-04 15:12 | XMS_ITS | Data Portability ---
Author Organization [place] [facility], Allergy Address [address] [address] Assessment Encounter Date Assessment Date Assessment LastModified by Organization Details LastModified Time 03/06/2024 03/06/2024 Patient came for a third opinion regarding right angle of mandible mass. He has previously seen my colleague Dr. Ceballos, he has had a second opinion with dress draper in [place] Dr. Cruz and we are all in [...] although his MRI that was performed in [place] is not available for my review today. 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 Procedures Surgical [...] Updated DateTime 03/06/2024 180.34 cm 30.7 kg/m2 27831.32 g Hermelinda Ramon [place] - [facility] 03/06/2024 15:31:05 Social History None recorded. Functional Status None recorded. Mental Status None recorded. Family History Nothing Reported. Medical History No medical history recorded. Past Encounters Encounter ID Performer Location Encounter Start Date Encounter Closed Date Diagnosis/Indication Diagnosis SNOMED-CT Code Diagnosis ICD10 Code Diagnosis Note [id number] PEGGY KEENE MD [facility] [address] [address] 03/06/2024 15:10:15 03/06/2024 16:15:21 Facial swelling 918192879 R22.0 Health Concerns Section Related Observation LastModified by Organization Detai ls LastModified Time None Recorded Concern Status LastModified by Organization Details LastModified Time None Recorded Advance Directives Directive None Recorded Payers Insurance Date Sequence Insurance Name Policy Number Policy Lr Covered Member ID Lr Member ID Guarantor Name 04/23/2024 1 [facility] HEALTH NET PLAN (MEDICAID HMO) [id number] Shoaib Muñoz [id number] Shoaib Muñoz Notes Date Note Type Note Provider Name and Address Organization Details Recorded Time 03/06/2024 text/html Around 10/2022 no felipe a lump behind right angle of jaw. Patient of Dr. 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 Over time he has begun to appreciate enlargement of the right parotid gland. He was last evaluated by Dr. 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 He underwent an additional imaging study 09/10/2023 CT facial with contrast at [facility] with atrophic left parotid gland and normal right parotid gland. 09/2023 MRI [facility] - results not available - was told it is inconclusive no pain in the neck,feels substantially larger PEGGY KEENE MD [address] [place] [address], [place], [address], [facility] - [facility] 03/06/2024 16:13:07
--- OUTSIDE RECORDS SUMMARY | 2025-02-04 15:12 | XMS_ITS | Clinical Summary ---
Author Organization Unknown Care Team Providers Care Double Cut Off Saw Operator Name Role Phone JENSEN RAMOS, BRANDY Unavailable Unavailable ELISABET RN, ITZEL Unavailable Unavailable Payers Payer Name Policy Type Policy Number Effective Date Expira tion Date [facility] [id number] MEDICAID [facility] [id number] Problems Condition Name Condition Details Condition Category [...] extend.rel. IM syringe 11-13 00:00: 00 Yes [id number] 441 mg MONTHLY 441 mg MONTHLY (route: intramuscu lar) Med Classific ation: Central Nervous System Agents benztropine 0.5 mg tablet 11-13 00:00: 00 Yes [id number] 1 tablet 2 TIMES DAILY 1 tablet 2 TIMES DAILY (route: oral) Med Classific ation: Central Nervous System Agents clonidine HCl 0.2 mg tablet 11-13 00:00: 00 12-17 23:59 :00 No [id number] 1 tablet 3 TIMES DAILY 1 tablet 3 TIMES DAILY (route: oral) Med Classific ation: Cardiovas cular Therapy Agents divalproex 500 mg tablet,suzy yed release 11-13 00:00: 00 12-27 23:59 :00 No [id number] 500 mg EVERY AM 500 mg EVERY AM (route: oral) Med Classific ation: Central Nervous System Agents divalproex 500 mg tablet,suzy yed release 11-13 00:00: 00 Yes [id number] 1000 mg BEDTIME 1000 mg BEDTIME (route: oral) Med Classific ation: Central Nervous System Agents ibuprofen 600 mg tablet 11-13 00:00: 00 Yes [id number] 1 tablet EVERY 6 HOURS 1 tablet EVERY 6 HOURS (route: oral) Med Classific ation: Analgesic , Anti-infl ammatory or Antipyret ic melatonin 3 mg tablet 11-13 00:00: 00 12-17 23:59 :00 No [id number] 9 mg BEDTIME 9 mg BEDTIME (route: oral) Med Classific ation: Central Nervous System Agents multivitami n with minerals tablet 11-13 00:00: 00 Yes [id number] 1 tablet DAILY 1 tablet DAILY (route: oral) Med Classific ation: Electroly te Balance-N utritiona l Products olanzapine 10 mg tablet 11-13 00:00: 00 12-17 23:59 :00 No [id number] 10 mg BEDTIME 10 mg BEDTIME (route: oral) Med Classific ation: Central Nervous System Agents Senna Lax 8.6 mg tablet 11-13 00:00: 00 Yes [id number] 2 tablet 2 TIMES DAILY 2 tablet 2 TIMES DAILY (route: oral) Med Classific ation: Gastroint estinal Therapy Agents Suboxone 4 mg-1 mg sublingual film 11-13 00:00: 00 Yes [id number] 1 film 2 TIMES DAILY 1 film 2 TIMES DAILY (route: sublingual ) Med Classific ation: Chemical Dependenc y, Agents to Treat clonidine HCl 0.1 mg tablet 12-17 00:00: 00 Yes [id number] 1 tablet 2 TIMES DAILY 1 tablet 2 TIMES DAILY (route: oral) Med Classific ation: Cardiovas cular Therapy Agents melatonin 3 mg disintegrat ing tablet 12-17 00:00: 00 Yes [id number] 3 tablet BEDTIME 3 tablet BEDTIME (route: oral) Med Classific ation: Central Nervous System Agents olanzapine 5 mg tablet 12-17 00:00: 00 12-27 23:59 :00 No [id number] 5 mg BEDTIME 5 mg BEDTIME (route: oral) Med Classific ation: Central Nervous System Agents olanzapine 7.5 mg tablet 12-27 00:00: 00 Yes [id number] 7.5 mg BEDTIME 7.5 mg BEDTIME (route: oral) Med Classific ation: Central Nervous System Agents sertraline 25 mg tablet 12-27 00:00: 00 Yes [id number] 25 mg DAILY 25 mg DAILY (route: [...] CAREGIVER ON MANAGEMENT OF DEMENTIA UTILIZING THE [facility] CARE SPECIALTY PROGRAM. [code = SN TO INSTRUCT CAREGIVER ON MANAGEMENT OF DEMENTIA UTILIZING THE [facility] SPECIALTY PROGRAM.] Future Scheduled Test SKILLED NU RSE WILL MAINTAIN SITUATIONAL AWARENESS FOR SAFETY AND WILL NOTIFY CLINICAL LOCKSTITCH LINING SETTER AND PHYSICIAN/PROVIDER WITH ANY CHANGE IN CONDITION. [code = SKILLED NURSE WILL MAINTAIN SITUATIONAL AWARENESS FOR SAFETY AND WILL NOTIFY CLINICAL LOCKSTITCH LINING SETTER AND PHYSICIAN/PROVIDER WITH ANY CHANGE IN CONDITION.] Goal 2025-01-08 Patient Goal - REDUCE MY ANX IETY Goal Patient Goal - REDUCE MY ANX IETY Goal Provider Goal - A PLAN OF CARE WILL BE ESTABLISHED THAT MEETS PATIENT'S SHELTER NEEDS AND INCLUDES PATIENT GOAL FOR HOME [...] DEMENTIA A RESULT OF PARTICIPATION IN THE [facility] CARE SPECIALTY PROGRAM. Goal Provider Goal - PATIENT WILL REMAIN SAFE IN THE COMMUNITY AND WILL BE FREE OF DANGER TO SELF AND OTHERS THROUGHOUT THE CERTIFICATION PERIOD. Encounters Start Date/Time End Date/Time Encounter Type Admission Type Attending [facility] Facility Care Department Encounter ID Discharge Date Discharge Status Discharge Condition Discharge Reason Percent Goals Met 2025-01-12 00:00:00 2025-03-12 00:00:00 Outpatient RECERTIFIC ITZEL PAZ [facility] [id number] .[id number]
--- OUTSIDE RECORDS SUMMARY | 2025-02-04 15:12 | XMS_ITS | Clinical Summary ---
Author Organization [facility] Address [address] [place] [address] Care Team Providers Care Butcher Head Name Role Phone Unavailable Primary Care Provider [...] patient's age to complete this topic Insurance [facility]
--- OUTSIDE RECORDS SUMMARY | 2025-02-04 15:12 | XMS_ITS ---
Author Organization Jose Grossman III, MD Address [address] [place] [address] Care Team Providers Care Recycler Name Role Phone Jose Grossman [facility] [phone] REASON FOR VISIT Updated Address Encounters Encounter Location Date Provider Diagnosis Jose Grossman III, MD [address] [place] [address] [place] [address] 01/27/2025 Jose Grossman Plan Of Treatment Next Appt Details Provider Name:Jose Grossman, 04/01/2025 02:00:00 PM, [address] [place] [address] YVETTE GONZALEZ, [place], [address], Progress Notes * KELVIN CARLRAYRAY ShoaibDOB: [birth year] (29 yo M)Acc No.[id number]:01/27/2025 Patient:?Shoaib MCLAUGHLIN :1995???Age:29 Y???Sex:Male Phone: Address:[address], [place], [address] * true * Date:? Generated for Robert sands/Emeli/eTransmitting on:?02/04/2025 03:11 PM EDT
--- OUTSIDE RECORDS SUMMARY | 2025-02-04 15:12 | XMS_ITS | Referral Summary ---
Author Organization [facility] Address [address] [place] [address] Care Team Providers Care Manager Human Capital Name Role Phone Patient, Has No Pcp [...] Treatment [place] [address] [employer] Care Teams Manager Human Capital Relationship Specialty Start Date End Date Patient, Has No Pcp Or Ref DO NOT EDIT THIS RECORD VIA PROVIDER ON THE FLY PCP - General Insecticide Supervisor 10/30/21
--- OUTSIDE RECORDS SUMMARY | 2025-02-04 15:12 | XMS_ITS | Clinical Summary ---
Author Organization [facility] Address [address] [place] [address] Phone Care Team Providers Care Fine Chemicals Operator Name Role Phone Unavailable Primary Care Provider [...] disease. Other Siblings: other non related adopted yi kids one sister and two brothers Social [...]
--- OUTSIDE RECORDS SUMMARY | 2025-02-04 15:12 | XMS_ITS | Encounter Summary ---
Author Organization [facility] Address [address] [place], [place] [address] Phone Care Team Providers Care Continuous Loft Operator Name Role Phone Unavailable Primary Care Provider Unavailabl e Encounter Details Date Type Department Care Team (Late st Contact Info) Description 10/14/2009 Documentation [facility] [address] [place] [address] Family Medicine, Physician [address] [place] [address] Social History Tobacco Use Types Packs/Day Years [...]
--- OUTSIDE RECORDS SUMMARY | 2025-02-04 15:12 | XMS_ITS | Encounter Summary ---
Author Organization [facility] Address [address] [place] [address] Phone Care Team Providers Care Plastic Machine Operator Name Role Phone Unavailable Primary Care Provider Unavailabl e Encounter Details Date Type Department Care Team (Late st Contact Info) Description 02/11/2018 Conversion Encounter [facility] [address] [address] Social History Tobacco Use Types Packs/Day Years [...]
--- OUTSIDE RECORDS SUMMARY | 2025-02-04 15:12 | XMS_ITS | Patient Health Record ---
Author Organization Jose Grossman III, MD Address [address] [place] [address] [place] [address] Care Team Providers Care Sole Conforming Machine Operator Name Role Phone GrossmanJose sawyer Unavailable [phone] Reason For Referral No Information Encounters Encounter Location Date Provider Diagnosis Jose Grossman III, MD [address] [place] [address] [place] [address] 01/27/2025 Jose Grossman Plan Of Treatment Next Appt Details Provider Name:Jose Grossman, 04/01/2025 02:00:00 PM, [address] [place] [address] YVETTE GONZALEZ, [place], [address], Insurance Providers Payer Name Payer Address Payer Phone Subscriber Number Group Number Insured Name Patient Relationship to Insured Coverage Start Date Coverage End Date MEDICAID [place] [address] [place] [id number] Shoaib Mclaughlin Self - patient is the insured
[2025-02-04 15:46] LABS: Erythrocyte Sedimentation Rate 2 MM/HR (0-15)
[2025-02-04 16:11] LABS: Alanine Aminotransferase 20 U/L (0-40); Albumin Level 4.6 g/dL (3.5-5.0); Anion Gap 13 (12-20); Aspartate Amino Transferase 38 U/L (5-37); Bilirubin Total 0.4 mg/dL (0.0-1.0); Blood Urea Nitrogen 15 mg/dL (9-16); C Reactive Protein 0.14 mg/dL (< or = 0.50); Calcium 9.5 mg/dL (8.4-10.2); Carbon Dioxide 28 mmol/L (22-29); Chloride 105 mmol/L (96-108); Cholesterol 198 mg/dL (<200); Estimated Glomerular Filt Rate > 60; Gamma Glutamyl Transpeptidase 20 U/L (11-51); Glucose Random 97 mg/dL (60-115); Iron 111 mcg/dL (45-160); Percent Iron Saturation 40 % (15-50); Potassium 4.2 mmol/L (3.3-5.1); Sodium 142 mmol/L (135-145); Total Iron Binding Capacity 278 mcg/dL (228-428); Total Protein 7.2 g/dL (6.5-8.0); Unsaturated Iron Binding 167 ug/dL
[2025-02-04 16:13] LABS: Vitamin B12 939 pg/mL (200-900)
[2025-02-04 16:18] LABS: Free T4 (Free Thyroxine) 0.95 ng/dL (0.71-1.85); Thyroid Stimulating Hormone 0.85 uIU/mL (0.32-4.0)
[2025-02-04 16:40] LABS: Alkaline Phosphatase 75 U/L (39-117)
[2025-02-04 16:44] LABS: Valproate 26.7 mcg/mL (50.0-100.0)
[2025-02-05 08:31] LABS: Syphilis Screen Nonreactive (Nonreactive)
[2025-02-05 09:10] LABS: HBS Num1 35.63 mIU/mL (0-7.99); HBc Num1 0.06 S/CO (0.00-0.79); HBsAGNum1 0.48 S/CO (0.00-0.99); HIV AB/AG Nonreactive (Nonreactive); HIV Num 1 0.07 S/CO (0.00-0.99); Hepatitis B Core Antibody Nonreactive (Nonreactive); Hepatitis B Surface Antigen Negative (Negative); ~Hepatitis B Surface Antibody REACTIVE (Nonreactive)
[2025-02-05 17:44] LABS: Homocysteine 10.7 umol/L (<11.4)
[2025-02-09 20:13] LABS: Vitamin B1 18 nmol/L (8-30)
== END 2025-02-04 14:01 | disposition home or self-care (01) ==
LOC: HO.LAB 14:00
PROVIDERS: Visit Provider Psychiatry & Neurology Psychiatry
DX: F39 Unspecified mood [affective] disorder (principal)
CPT/HCPCS: 36415; 80053; 80164; 82306; 82465; 82607; 82977; 83036; 83090; 83540; 83735; 84425; 84439; 84443; 85025; 85652; 86140; 86704; 86706; 86780; 87340; 87389

== ENCOUNTER 2025-02-14 08:15 | Outpatient (RCR) | payer OTHER, SELFPAY ==
[2025-01-30 10:37] VITALS: BMI 29.9
[2025-01-30 10:38] VITALS: BP 112/70; PULSE 60; TEMP 36.6
--- NOTE | 2025-01-30 15:09 | HO.PHP ---
Clients case was opened and reviewed in teams today.
--- NOTE | 2025-01-30 15:37 | PC.ADMIT ---
Patient is a 29 year old single male who was referred to [facility] by [facility] where he was attending prior to admission to [facility]. 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 Patient reports history of heavy use of alcohol, opiates (he is currently on MAT with Suboxone, Cocaine, and marijuana use. Patient also uses hallucinogens on occasion. Last use of Alcohol was a year ago with the exception of a relapse for 2 days a month ago. Patient reports last use of Opiates and cocaine was 1.5 years ago. Stated he stopped using Marijuana a few weeks ago. Patient has a history of inpatient LOC at [facility] in August 2024 for psychosis according to [facility] and in September 2024 was on a sectioned 12 admitted to [facility] unit for severe depression for 3 weeks. Patient reports history of hallucinations. Regarding VH patient stated, In 2021 I started seeing shadows moving but not frequently. Patient denied currently. Messages that I notice in the clouds I believe is messages from GOD. Positive messages guidance for something to do or something to pay attention to never violent or negative . A few months ago I started feeling someone poking me tapping me when no one is there . Last time this happened was three weeks ago. Regarding AH patient stated, In the mornings sounds like a room full of people whispering . Patient stated only happens in the morning. Sounds like they are in the room . Goes on for 10 minutes then stops. Denied any paranoid thoughts. Patient is alert and oriented x4. He is calm and cooperative. He presented with depressed mood and affect. He reports he feels extreme fatigue and lethargic over the last three months in combination with anxiety and stress and is eating one meal a day or less. He reports he is stressed in regards to his future and his past. Patient is currently unemployed. Patient is alert and oriented x4. He is calm and cooperative. He presented with depressed mood and anxious affect. Regarding SI. Patient reports passive thoughts denied any plan of intent. Not really. There is a difference from wishing self to actually doing it. i would never actually kill myself. Patient was given a copy of his safety plan if needed. Medications updated with patient, patient's medication list from his psychiatric provider that patient provided dated 01/23/25 and I confirmed this with his VNA Bernice #[phone]. Patient stated that instead of taking Clonidine 0.1 mg BID he takes two tabs at HS. Medication education provided to patient regarding importance of taking medication as prescribed along with education provided about EKG results of Sinus Bradycardia Vent rate 49 (Bernice HERNANDEZ is also aware). Patient stated he will start taking as prescribed.
--- NOTE | 2025-02-03 12:46 | P.HPPSP_ITS ---
HPI Date of Service: 02/03/25 Chief Complaint: bipolar Sources of Information: patient interviewed, chart reviewed and crisis/core team assessment reviewed HPI Narrative: This is the first [facility] admission for this single 29-year-old male with chronic depression, mood disorder, psychosis, drug and alcohol addiction, and history of several inpatient hospitalizations, carrying diagnoses of Bipolar disorder as well as Schizoaffective disorder, who was referred as a step-down from [facility] after [id number] inpatient stays to [facility] in and to [facility] in 09/2024. Both times patient was involuntarily sectioned for grossly disorganized and delusional thoughts, and erratic behaviors, in the context of active substance use. Patient reports being clean and sober from illicit substances for 13 months, and has been off all substances (including alcohol and marijuana) for the past month. Patient reports struggling with a lot of relational trauma growing up, his parents had great difficulty managing his mental health problems and often took to shaming him or punishing him and their interactions often lead to escalation which inadvertently exacerbated his emotional and behavioral troubles. He struggled with severe mood dysregulation, poor impulse control and self-harming behaviors, bulimia, anorexia, and disorganized eating patterns. SIB I was so frustrated I would hit myself He experienced manic episodes in the past however many of these were concurrent with developmental trauma and heavy polysubstance use throughout adolescence and young adulthood not given an overly convincing history to support a Bipolar I dx,and would be difficult to gleen how much of this was and was not substance- induced since persistent CHANEL extends back to middle school. Patient was also unclear about developmental history (?ASD, ?LD etc). He relays that depression has been the predominant mood state he is in a mojority of the time. I have been depressed as far back as I can remember . Maybe I was okay in elementary school but that was probably the last time I felt not depressed. Past Psychiatric History: [facility] x 8-10, first admission at age 21 at [facility] Patient is not certain of previous medication trials, he know he has had trials in past possibly with risperidone, Haldol, Seroquel, lithium, Vraylar CURRENT MEDICATIONS: Suboxone 24-6 mg/d Depakote 250 mg q.a.m. Depakote 1000 mg q.h.s. Olanzapine 7.5 mg q.h.s. Sertraline 50 mg q.d. Melatonin 10 mg q.h.s. Clonidine 0.1 b.i.d. benztropine 0.5 mg BID Aristada 441 g IM q.4 weeks Last seen provider 2 weeks ago and ZOloft was increased to 50 mg. No other recent changes [facility] Medical History (Updated 02/04/25 @ 08:16 by Tere Kitchen MD) No known health problems Substance History: Alcohol twice in 6 months, last time Cocaine, opioids, hallucinogens last used >1 yr ago Trauma History: endorses Diagnostics Vital Signs (24Hr): BMI result Body Mass Index 29.9 Meds/Allergies Meds Home Medications ?Medication ?Instructions ?Recorded ?Confirmed ?Type aripiprazole lauroxil 441 mg/1.6 441 mg IM Q4W 01/30/25 01/30/25 History mL suspension, ext.rel. IM syringe (Aristada) benztropine 0.5 mg tablet 0.5 mg PO BID 01/30/25 01/30/25 History buprenorphine 8 mg-naloxone 2 mg 3 film buccal DAILY 01/30/25 01/30/25 History sublingual film clonidine HCl 0.1 mg tablet 0.1 mg PO BID 01/30/25 01/30/25 History divalproex 250 mg tablet,delayed 250 mg PO QAM 01/30/25 01/30/25 History release divalproex 500 mg tablet,extended 1,000 mg PO BEDTIME 01/30/25 01/30/25 History release 24 hr melatonin 10 mg tablet 10 mg PO BEDTIME 01/30/25 01/30/25 History olanzapine 7.5 mg tablet 7.5 mg PO BEDTIME 01/30/25 01/30/25 History sennosides 17.2 mg tablet (Senokot 17.2 mg PO BID 01/30/25 01/30/25 History Extra Strength) sertraline 50 mg tablet 50 mg PO DAILY 01/30/25 01/30/25 History Allergies Allergies Allergy/AdvReac Type Severity Reaction Status Date / Time Unable to Assess Allergy Verified 01/31/25 23:42 Mental Status Exam Mental Status Exam Narrative: Alert, oriented, in no acute distress. Calm, cooperative, engaged. No psychomotor agitation or neurovegetative retardation. Eye contact maintained. Mood depressed, affect constricted, flat with moments of intense irritability. Speech normal. Thought process linear, coherent. Thought content related to stressors, transient hopelessness and passive SI, Denies HI. No paranoia or delusional content elicited. No evidence of psychosis. Insight and judgment - fair but adequate. Assessment & Plan Assessment & Plan (1) Bipolar affective disorder, depressed, severe, with psychotic behavior: Status: Acute Code(s): F31.5 - Bipolar disorder, current episode depressed, severe, with psychotic features (2) Complex posttraumatic stress disorder: Status: Acute Code(s): F43.10 - Post-traumatic stress disorder, unspecified (3) Opioid dependence on agonist therapy: Status: Acute Code(s): F11.20 - Opioid dependence, uncomplicated Plan Admit to [facility] VS reviewed: afebrile, BP 112/70;?60 bpm continue regular medications?for now Will obtain routine lab work, check renal and thyroid function Considering switching from VPA to [place] to better address depression Other considerations - including increasing dose olanzapine vs switching to risperidone EKG, routine for baseline QTc for medication considerations as indicated UDS as indicated MassPat reviewed Continue to monitor as per protocol Patient educated on: diagnosis, medication risk/benefits and substance abuse Informed Consent: understands Reason for continued partial hosp. stay Substantial Risk for: harm to self, inability to function, rapid decompensation and med/psych decompensation Certification I certify that partial hospital treatment is medically necessary due to the symptoms and problems resulting from the patient's mental illness and the failure to treat the patient at the partial hospital level of care would likely result in the patient requiring inpatient psychiatric care which could not be prevented at a less intensive level of care. Time Spent With Patient Time: Total time managing care of this patient today _90___ minutes.
--- NOTE | 2025-02-04 13:52 | HO.PHP ---
[facility] staff member checked in with Shoaib due to him expressing SI with no plan or intent but was unable to identify an activity to engage in after program for self-care. Shoaib informed the [facility] staff member that he has SI thoughts all the time and this has been apart of his life for some time. [facility] staff member explored what those thoughts are. Shoaib stated he has thoughts around how many pills does he need to take of his high blood pressure medications to get out of this situation and/or find ways to say goodbye to his family. [facility] staff member assessed what stops him from acting on those thoughts. Shoaib shared that he has a lot of responsibilities, he would like to address his past, and he needs to be there for his family. Shoaib expressed that his thoughts are more so fantasies and not actual plans to act on those thoughts. [facility] staff member was receptive and asked if he knows what he is going to do after program. Shoaib said if a family member needs help with yard work, he is going to help them, go for a run, and watch a show on his phone. Shoaib expressed that he is going to be safe and will be in attendance to program tomorrow.
--- NOTE | 2025-02-05 17:01 | HO.PHP ---
PHP Admin, Daisy, informed the team that Shoaib's transportation never showed up. There were no safety concerns reported and Shoaib will be in attendance to program tomorrow.
--- NOTE | 2025-02-11 08:39 | HO.PHP ---
PHP admin, Daisy, informed the team that Shoaib will not be in attendance to program today because he is going to [facility] due to stating there is something wrong with his head. There were no safety concerns presented.
--- NOTE | 2025-02-14 09:36 | P.PNPSP_ITS ---
Subjective Subjective Date of Service: 02/14/25 Reason For Visit: bipolar Healthcare Proxy: No Guardianship: No Medical Problems Affecting Mental Status: No Interim History: 29 yo reports he is doing ok - found php helpful but feels like would need to be here longer to get more use out of it- told patient welcome to come again-if worsening clinical symptoms arise- Sleep ok, energy ok , tolerating medications doing ok with sobriety- goes to outpatient for CHD and other program for suboxone denying current si/or paranoia or ah Medication Compliance: Yes Side effects from medications: No Attending Groups: Yes Review of Systems Acute medical concerns: No Medical Review of Systems: unchanged Review of Systems: no complaints of s/e of medications Mental Status Exam Mental Status Exam Patient Appearance: Well Grooomed and Appropriate Patient Orientation: Person, Place, Time and Situation Level of Consciousness: Awake and Alert Patient Behavior: Appropriate, Guarded and Cooperative Mood Description: Constricted Affect Description: Flat Patient Cognition Impaired: No Ability to Follow Directions: Good Speech Pattern: Clear Hallucinations: None Delusions: Not Present Thought Process: Intact and Goal Oriented Thought Content: positive for [place] Judgement: Good Diagnostics Vital Signs (24Hr): BMI result Body Mass Index 29.9 Labs Labs: discussed low vitamin D pt aware he should be on this Assessment & Plan Assessment & Plan (1) Complex posttraumatic stress disorder: Status: Acute Code(s): F43.10 - Post-traumatic stress disorder, unspecified (2) Bipolar affective disorder, depressed, severe, with psychotic behavior: Status: Acute Code(s): F31.5 - Bipolar disorder, current episode depressed, severe, with psychotic features (3) Opioid dependence on agonist therapy: Status: Acute Code(s): F11.20 - Opioid dependence, uncomplicated Plan stable for dc- though feels could have made more use of php - invited to come again if heightened sys requiring this level of care Patient educated on: medication risk/benefits and other (dc plan) Informed Consent: understands Reason for contiued partial hosp. stay Substantial Risk for: stable for discharge Certification I certify that partial hospital treatment is medically necessary due to the symptoms and problems resulting from the patient's mental illness and the failure to treat the patient at the partial hospital level of care would likely result in the patient requiring inpatient psychiatric care which could not be prevented at a less intensive level of care. Total time managing care of this patient today ____ minutes. Discharge Plan Discharge Attending provider: Tere Kitchen Additional Instructions: CHD follow up as scheduled with therapist and prescriber as well clinic for MAT Medications: Continued benztropine 0.5 mg tablet 0.5 mg PO BID Aristada 441 mg/1.6 mL suspension,extended rel syring 441 mg IM Q4W divalproex 250 mg tablet,delayed release (DR/EC) 250 mg PO QAM olanzapine 7.5 mg tablet 7.5 mg PO BEDTIME divalproex 500 mg tablet extended release 24 hr 1,000 mg PO BEDTIME sertraline 50 mg Tablet 50 mg PO DAILY Senokot Extra Strength 17.2 mg tablet 17.2 mg PO BID buprenorphine-naloxone 8-2 mg Film 3 film BUCCAL DAILY Rx Instructions: Take three films daily. Last filled 01/14/25. melatonin 10 mg Tablet 10 mg PO BEDTIME Changed clonidine HCl 0.1 mg tablet 0.1 mg PO BEDTIME Qty: 2 0RF Patient Comments: Patient stated he takes two tabs at night. See Nursing Assessment. Patient medication educated provided about importance of taking as prescribed. Rx Instructions: Hold for SBP less than 100 and DBP less than 60. Pulse less than 60. Take at 9:00 in the morning and 9:00 in the evening. Print Language: [place]
== END 2025-02-14 23:59 | disposition home or self-care (01) ==
LOC: HO.PHPA 08:15
PROVIDERS: Visit Provider Psychiatry & Neurology Psychiatry
DX: F31.5 Bipolar disorder, current episode depressed, severe, with psychotic features (principal); F43.10 Post-traumatic stress disorder, unspecified; F11.20 Opioid dependence, uncomplicated; Z79.899 Other long term (current) drug therapy
CPT/HCPCS: 90791; 90853

== ENCOUNTER 2025-04-16 09:56 | Outpatient (REF) | payer OTHER, SELFPAY ==
--- OUTSIDE RECORDS SUMMARY | 2025-04-01 10:00 | XMS_ITS ---
Author Organization Jose Grossman III, MD Address [address] [place] [address] Care Team Providers Care Metalworking Specialist Name Role Phone Jose Grossman Unavailable [phone] Allergies Allergen (clinical drug ingredient) Drug/Non Drug Allergy documented on EMR Reaction Allergy Type Onset Date Status No Known Drug Allergy Unknown Drug Allergy Active No Known Food Allergy Unknown Drug Allergy Active Reason For Referral Reason right shoulder pain evaluate and treatment Diagnosis 1 Other chronic pain ( G89.29) Diagnosis 2 Pain in right should er (M25.511) Referral Organization Jose Grossman III, MD Referring Provider First Name Jose Referring Provider Last Name Ngoc Referring Provider Speciality Internal M edicine Referred Provider XIN LOPES Referred Provider Specialty Orthopedic S urgery General Notes Karlos Elsajackelin SALAZAR 04/08 10:26:55 AM >ref/demo/progress note sent pt called LM for him to contact Dr Lopes office and call us back with day/time Referral Priority Routine REASON FOR VISIT New Patient CHP Medications Medication SIG (Take, Route, Frequency, Duration) Notes Start Date End Date Status Depakote ER 500 MG 1 tablet Orally Once a day Active Divalproex Sodium 250 MG TAKE 1 TABLET B Y MOUTH EVERY MORNING Oral Active Melatonin ER 10 MG TAKE 1 TABLET BY NHI TH EVERY NIGHT 20 MINUTES BEFORE BED Oral Active Sertraline HCl 50 MG Oral Active cloNIDine HCl 0.1 MG TAKE 1 TABLET BY MO UTH TWO TIMES A DAY AT 9 AM AND 9 PM Oral Active OLANZapine 7.5 MG TAKE 1 TABLET BY NHI TH EVERY DAY AT BEDTIME Oral Active Aristada 441 MG/1.6ML PLEASE SEE ATTACHE Davies FOR DETAILED DIRECTIONS Intramuscular Active Benztropine Mesylate 0.5 MG Oral Active Suboxone 8-2 MG 1 film under the ton rosalind and allow to dissolve Sublingual Once a day 04/01/2025 Active Social History Tobacco Use: Social History Observation Description Date Details (start date - stop date) Former Smoker NA - NA Tobacco Control (Standard) Question Answer Notes Tobacco use: Former smoker How long has it been since you last smoked? 1-5 years Additional Findings: Tobacco non-user Ex-cigaret te smoker AUDIT-C (Standard) Question Answer Notes Did you have a drink containing alcohol in the p ast year? 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 Problem 816921739 Moderate obesity (E66.9) Active confirmed We made a plan to lose weight at a rate of one half of a pound per week. We discussed his diet and nutrition. Problem 990869453336006 History of bulimia (Z86.59) Active confirmed This problem occurred at age 12 and has been inactive for many years. Problem 255216218 Other low back pain (M54.59) Active confirmed He experiences lumbar back pain when he gets out of bed in the morning but it resolves after an hour or 2. Cause of this is unclear. Problem 1674766 Former smoker (Z87.891) Active confirmed Problem [id number] Tear of right rotator cuff, unspecified tear extent, unspecified whether traumatic (M75.101) Active confirmed Vital Signs Temperature 97.9 degrees Fahrenheit 04/01/20 25 Blood pressure systolic 132 mm Hg 04/01/20 25 Blood pressure diastolic 71 mm Hg 025 Heart Rate 76 /min 04/01/2025 Height 70.5 in 04/01/2025 Weight 247 lbs 04/01/2025 BMI 34.94 kg/m2 04/01/2025 Encounters Encounter Location Date Provider Diagnosis Jose Grossman III, MD [address] [place] [address] [place] [address] 04/01/2025 Jose Grossman Depression F32.9 ; Substance use disorder F19.90 ; Moderate obesity E66.9 ; History of bulimia Z86.59 ; Other low back pain M54.59 ; Former smoker Z87.891 and Tear of right rotator cuff, unspecified tear extent, unspecified whether traumatic M75.101 Assessments Encounter Date Diagnosis (ICD Code) Assessment Notes Treatment Notes Treatment Clinical Notes 04/01/2025 Depression (ICD-10 - F32.9) [facility] is [facility]. He has been compliant with all other medications and their recommendations. He is not currently using substances in his depression seems minimal. 04/01/2025 Substance use disorder (ICD-10 - F19.90) He is currently in recovery using Suboxone. 04/01/2025 Moderate obesity (ICD-10 - E66.9) We made a plan to lose weight at a rate of one half of a pound per week. We discussed his diet and nutrition. 04/01/2025 History of bulimia (ICD-10 - Z86.59) This problem occurred at age 12 and has been inactive for many years. 04/01/2025 Other low back pain (ICD-10 - M54.59) He experiences lumbar back pain when he gets out of bed in the morning but it resolves after an hour or 2. Cause of this is unclear. 04/01/2025 Former smoker (ICD-10 - Z87.891) 04/01/2025 Tear of right rotator cuff, unspecified tear extent, unspecified whether traumatic (ICD-10 - M75.101) Plan Of Treatment Medication Medication Name Sig Start Date Stop Date Notes Depakote ER 500 MG 1 tablet Orally Once a day Divalproex Sodium 250 MG TAKE 1 TABLET B Y MOUTH EVERY MORNING Oral Melatonin ER 10 MG TAKE 1 TABLET BY NHI TH EVERY NIGHT 20 MINUTES BEFORE BED Oral Sertraline HCl 50 MG Oral cloNIDine HCl 0.1 MG TAKE 1 TABLET BY MO UTH TWO TIMES A DAY AT 9 AM AND 9 PM Oral OLANZapine 7.5 MG TAKE 1 TABLET BY NHI TH EVERY DAY AT BEDTIME Oral Aristada 441 MG/1.6ML PLEASE SEE ATTACHE Davies FOR DETAILED DIRECTIONS Intramuscular Benztropine Mesylate 0.5 MG Oral Suboxone 8-2 MG 1 film under the ton rosalind and allow to dissolve Sublingual Once a day 04/01/2025 Pending Test Test Name Order Date PROFILE, FASTING (COMPREHENSIVE METABOLI C) 04/01/2025 CRP 04/01/2025 CBC w DIFF 04/01/2025 Lipid Panel 04/01/2025 Referrals Referral Date Details 04/01/2025 04/01/2025, right sh oulder pain evaluate and treatment, XIN LOPES Next Appt Details Follow Up: 2 Weeks TV then 6 months OV, Reason: to discuss labs then OV no tests Provider Name:Jose Grossman, 04/18/2025 09:45:00 AM, [address] [place] [address] [address], [place], [phone], Provider Name:Jose Grossman, 10/07/2025 02:00:00 PM, [address] [place] [address] [address], [place], [phone], Progress Notes * Shoaib STRICKLANDDOB:1994 (29 yo M)Acc No.[id number]:04/01/2025 Progress Notes Patient: Shoaib SEGUNDO Provider: Lambert Grossman MD :1995 A ge:29 Y S ex:Male Date:04/01/2025 Address:[address] [place], [place] [id number] Subjective: * Chief Complaints: * N ew Patient CHP * HPI: C OVID-19 [place] [facility] [place] [facility]. He is a pleasant 29-year-old man who comes to the office today for the first time to establish himself in the practice as a new primary care patient. He was with his sr account executive until age 17. He has a significant history of depression and [facility]. He sees her every 5 or 6 weeks. The onset of depression was age 12. He has a history of substance use disorder and has been treated. He is now on a Suboxone treatment program. Complains of severe back pain every morning in the midline which resolves during the day and does not radiate. It was reobtain speaking with me today. It is not exacerbated by heavy lifting. Examination of his lumbar spine was unremarkable. He has a history of bulimia that began at age 12 but this is now in active. Questions H ave you had any new onset fever, chills, cough, congestion, sore throat, shortness of breath, muscle aches? N o S REBEKAH Questions: SDOH Questions I n the past year have you been worried about losing your housing? Y es I n the past year have you or any family members you live with been unable to get any of the following when it was really needed? Check all that apply: F ood, Utilities, Medicine or Healthcare * ROS: G eneral/Constitutional: pain S evere low back pain every morning that wears a way.?Chills d enies. F atigue a dmits. F ever d enies. E NT: Decreased hearing d enies. R espiratory: Cough d enies. C ardiovascular: Chest pain with exertion d enies. D yspnea on exertion?denies. S hortness of breath d enies. G astrointestinal: Constipation o ccasional. D ecreased appetite d enies. D iarrhea d enies. H eartburn d enies. N ausea d enies. R ectal bleeding d enies. V omiting d enies. H ematology: bruising d enies. p etechiae d enies. S wollen glands n one have been noted. G enitourinary: Frequent urination d enies. M usculoskeletal: Muscle aches d enies. P ainful joints d enies. S ciatica d enies. W eakness d enies. S kin: Itching d enies. R adela d enies. S kin lesion(s)?denies. N eurologic: Difficulty speaking d enies. D izziness d enies.?Headache d enies. L ow back pain E very morning but only in the morning. ? P sychiatric: Depressed mood w hich is moderate. * Medical History: * Surgical History: F ractured left tibia and fibula, no surgery Torn right rotator cuff age 23, no surgery * Hospitalization/Major Diagno stic Procedure: D epression Substance use disorder * Family History: F ather: alive. M other: alive. N on-Contributory. He is of [place] ancestry and was adopted. His parents are patients in the practice. He is not aware of any other family history of addiction or depression. * Social History: T obacco Use: T obacco Control (Standard) T obacco use: F ormer smoker H ow long has it been since you last smoked??1-5 years A dditional Findings: Tobacco non-user E x-cigarette smoker D rugs/Alcohol: D rugs H ave you used drugs other than those for medical reasons in the past 12 months? N o D rug/Alcohol: A LUL-C (Standard) D id you have a drink containing alcohol in the past year? N o P oints 0 I nterpretation N egative H e is currently unemployed. He is living across the street from his parents home with his aunt and helps care for his mother's mother. He is no longer smoking. He does not use illegal drugs. He has been compliant with his treatments. He is single with no children. * Medications: T akingSuboxone 8-2 MG Film 1 film under the tongue and allow to dissolve Sublingual Once a day Depakote ER 500 MG Tablet Extended Release 24 Hour 1 tablet Orally Once a day Divalproex Sodium 250 MG Tablet Delayed Release TAKE 1 TABLET BY MOUTH EVERY MORNING Oral Melatonin ER 10 MG Tablet Extended Release TAKE 1 TABLET BY MOUTH EVERY NIGHT 20 MINUTES BEFORE BED Oral Sertraline HCl 50 MG Tablet Oral cloNIDine HCl 0.1 MG Tablet TAKE 1 TABLET BY MOUTH TWO TIMES A DAY AT 9 AM AND 9 PM Oral OLANZapine 7.5 MG Tablet TAKE 1 TABLET BY MOUTH EVERY DAY AT BEDTIME Oral Aristada 441 MG/1.6ML Prefilled Syringe PLEASE SEE ATTACHED FOR DETAILED DIRECTIONS Intramuscular Benztropine Mesylate 0.5 MG Tablet Oral Medication List reviewed and reconciled with the patientTaking Suboxone 8-2 MG Film 1 film under the tongue and allow to dissolve Sublingual Once a day Taking Depakote ER 500 MG Tablet Extended Release 24 Hour 1 tablet Orally Once a day Taking Divalproex Sodium 250 MG Tablet Delayed Release TAKE 1 TABLET BY MOUTH EVERY MORNING Oral Taking Melatonin ER 10 MG Tablet Extended Release TAKE 1 TABLET BY MOUTH EVERY NIGHT 20 MINUTES BEFORE BED Oral Taking Sertraline HCl 50 MG Tablet Oral Taking cloNIDine HCl 0.1 MG Tablet TAKE 1 TABLET BY MOUTH TWO TIMES A DAY AT 9 AM AND 9 PM Oral Taking OLANZapine 7.5 MG Tablet TAKE 1 TABLET BY MOUTH EVERY DAY AT BEDTIME Oral Taking Aristada 441 MG/1.6ML Prefilled Syringe PLEASE SEE ATTACHED FOR DETAILED DIRECTIONS Intramuscular Taking Benztropine Mesylate 0.5 MG Tablet Oral Medication List reviewed and reconciled with the patient * Allergies: N o Known Drug AllergyNo Known Food Allergyno[Allergies Verified] Objective: * Vitals: H t: 70.5, Wt: 247, BMI:34.94, BP: 132/71, HR: 76, Temp: 97.9, Ht-cm: 179.07, Wt- k.04. * Examination: G eneral Examination: GENERAL APPEARANCE: p leasant, well nourished, well developed, in no acute distress, calm and relaxed, obese, man. HEAD: a traumatic, normocephalic. EYES: e jordan, perrla, anicteric, conjugate. EARS: n ormal. NOSE: s eptum intact. ORAL CAVITY: n ormal, unremarkable. NECK/THYROID: n o jugular venous distention, no carotid bruit, thyroid normal. LYMPH NODES: n o enlarged lymph nodes,spleen normal. SKIN: n o suspicious lesions, anicteric. HEART: n o clicks, gallops, murmurs, or rubs, regular rhythm, S1, S2 normal, no s3, or vascular bruits. LUNGS: c lear to auscultation . BREASTS: no masses palpable bilaterally. ABDOMEN: b owel sounds normal, no ascites, no organomegaly, no mass, centripital obesity. RECTAL EXAM: n ot examined. MUSCULOSKELETAL: e xtremities unremarkable, no clubbing, cyanosis or edema2 scars left leg over tibia and fibula below the knee, Leg lengths seemed equal. PERIPHERAL PULSES: n ormal. NEUROLOGIC: a lert and oriented, cranial nerves 2-12 grossly intact, deep tendon reflexes 2+ symmetrical, motor strength normal upper and lower extremities, sensory exam intact. PSYCH: a lert, oriented, cognitive function intact, cooperative with exam, good eye contact, judgement and insight good, mood/affect full range, speech clear, thought process logical, goal directed, His affect seems normal, depression not evident. ? Assessment: * Assessment: 1. D epression - F32.9 (Primary) N otes :He is under treatment at [facility]. He has been compliant with all other medications and their recommendations. He is not currently using substances in his depression seems minimal. 2 . S ubstance use disorder - F19.90 N otes :He is currently in recovery using Suboxone. 3 . M oderate obesity - E66.9 N otes :We made a plan to lose weight at a rate of one half of a pound per week. We discussed his diet and nutrition. 4 . H istory of bulimia - Z86.59 N otes :This problem occurred at age 12 and has been inactive for many years. 5 . O ther low back pain - M54.59 N otes :He experiences lumbar back pain when he gets out of bed in the morning but it resolves after an hour or 2. Cause of this is unclear. 6 . F ormer smoker - Z87.891 7 . T ear of right rotator cuff, unspecified tear extent, unspecified whether traumatic - M75.101 Plan: * Treatment: 2. O thers Continue Depakote ER Tablet Extended Release 24 Hour, 500 MG, 1 tablet, Orally, Once a day; C ontinue Divalproex Sodium Tablet Delayed Release, 250 MG, TAKE 1 TABLET BY MOUTH EVERY MORNING, Oral; Continue Melatonin ER Tablet Extended Release, 10 MG, TAKE 1 TABLET BY MOUTH EVERY NIGHT 20 MINUTES BEFORE BED, Oral; C ontinue Sertraline HCl Tablet, 50 MG, Oral; C ontinue cloNIDine HCl Tablet, 0.1 MG, TAKE 1 TABLET BY MOUTH TWO TIMES A DAY AT 9 AM AND 9 PM, Oral; C ontinue OLANZapine Tablet, 7.5 MG, TAKE 1 TABLET BY MOUTH EVERY DAY AT BEDTIME, Oral; C ontinue Aristada Prefilled Syringe, 441 MG/1.6ML, PLEASE SEE ATTACHED FOR DETAILED DIRECTIONS, Intramuscular; C ontinue Benztropine Mesylate Tablet, 0.5 MG, Oral. ? Referral To:XIN LOPES Orthopedic Surgery Reason:right shoulder pain * Procedure Codes: * Preventive Medicine: Counseling: C are goal follow-up plan: Counseling for abnormal BMI given Y es Above Normal BMI Follow-up D ietary management education, guidance, and counseling, Dietary needs education, Exercise promotion: strength training, Exercise promotion: stretching, Feeding regime, Giving encouragement to exercise, Lifestyle education regarding diet, Nutrition / feeding management, Nutrition therapy, Prescribed activity/exercise education, Prescribed diet education, Prescribed dietary intake, Special diet education, Weight monitoring , Intervention, Order not done: Medical or Other reason not done S moking/Tobacco Use Patient counseled on the dangers of tobacco use and urged to quit. 0 04/01/2025 * Follow Up: 2 Weeks TV then 6 months OV (Reason: to discuss labs then OV no tests) * Images: * Sign off status: Completed true * Provider: Lambert Grossman MD Date: 0 04/01/2025 Generated for Tikai shavon/Emeli/Pingsmitting on: 04/16/2025 10:43 AM EDT History and Physical Notes * HPI (History of Present Illness) Category Sub-Category Detail Notes COVID-19 Screening Questions Have you had any new onset fever, chills, cough, congestion, sore throat, shortness of breath, muscle aches?: No SDOH Questions SDOH Questions In the past year have you been worried about losing your housing?: Yes In the past year have you or any family members you live with been unable to get any of the following when it was really needed? Check all that apply:: Food, Utilities, Medicine or Healthcare Examination Category Sub-Category Detail Notes General Examination GENERAL APPEARANCE: pleasant , well nourished, well developed, in no acute distress, calm and relaxed, obese, man HEAD: atraumatic, normocep halic EYES: eomi, perrla, anicte ameya, conjugate EARS: normal NOSE: septum intact NECK/THYROID: no jugular venous di stention, no carotid bruit, thyroid normal HEART: no clicks, gallops, murmurs, or rubs, regular rhythm, S1, S2 normal, no s3, or vascular bruits LUNGS: clear to auscultatio n ABDOMEN: bowel sounds normal, no ascites, no organomegaly, no mass, centripital obesity NEUROLOGIC: alert and oriented, cranial nerves 2-12 grossly intact, deep tendon reflexes 2+ symmetrical, motor strength normal upper and lower extremities, sensory exam intact SKIN: no suspicious lesion s, anicteric PERIPHERAL PULSES: normal BREASTS: no masses palpable b ilaterally MUSCULOSKELETAL: extremities unremark able, no clubbing, cyanosis or edema2 scars left leg over tibia and fibula below the knee, Leg lengths seemed equal LYMPH NODES: no enlarged lymph no bruce,spleen normal RECTAL EXAM: not examined PSYCH: alert, oriented, cog nitive function intact, cooperative with exam, good eye contact, judgement and insight good, mood/affect full range, speech clear, thought process logical, goal directed, His affect seems normal, depression not evident ORAL CAVITY: normal, unremarkable Consultation Request Notes Referral Date Referring Provider Referred Provider Not fatuma 04/01/2025 Jose Grossman NOAH right shoulde r pain evaluate and treatment
--- NOTE | ~2025-04-16 | XR_ITS ---
CLINICAL HISTORY: BACK PAIN 3 views lumbar spine Comparison: None provided Findings: Normal vertebral body alignment. No acute fractures or dislocation. No significant degenerative change. IMPRESSION: No acute findings. This document has been electronically signed by: Cathy Koch MD on 04/16/2025 22:36:07
--- OUTSIDE RECORDS SUMMARY | 2025-04-16 10:43 | XMS_ITS | Clinical Summary ---
Author Organization [facility] Address [address] [place] [address] Phone Care Team Providers Care News Internship Name Role Phone Physician, No Pcp Primary Care Provider Unavaila ble Allergies No known active allergies Active Problems Problem Noted Date Diagnosed Date Anxiety 09/12/2024 Social History Tobacco Use Types Packs/Day Years Used Date Smoking Tobacco: Unknown Tobacco Cessation:Counseling Given: Not Answered Sex and Gender Information Value Date Recorded Sex Assigned at Not on file Legal Sex Male 9:48 PM EST Gender Identity Not on file Sexual Orientation Not on file Obstetrics History Last Filed Vital Signs Vital Sign Reading Time Taken Comments Blood Pressure 114/71 10/18/2024 11:29 PM EST Pulse 109 10/18/2024 11:29 PM EST Temperature 36.7 C (98.1 F) 10/18/2024 11:29 PM EST Respiratory Rate 18 10/18/2024 11:29 PM EST Oxygen Saturation 100% 10/18/2024 11:29 PM EST Inhaled Oxygen Concentration - - Weight 90.7 kg (200 lb) 10/18/2024 11:29 PM EST Height 177.8 cm (5' 10 ) 10/18/2024 11:29 PM EST Body Mass Index 28.7 10/18/2024 11:29 PM EST Plan of Treatment Health Maintenance Due Date Last Done Comments Hepatitis B Vaccines (4 of 4 - 4-dose series) 02/16/1994 1993, 1993, 1993 Hepatitis A Vaccines (2 of 2 - 2-dose series) 01/10/2013 07/12/2012 HIV Screening 10/24/2023 Social Influencers of Health Screening 10/24/2023 COVID-19 Vaccine ( season) 2024 Depression Screening 09/25/2024 Influenza Vaccine (#1) 2025 3, 06/30/2012, 06/18/2011, Additional history exists DTaP,Tdap,and Td Vaccines (8 - Td or Tdap) 04/27/2031 04/27/2021, 08/27/2008, 08/13/2003, Additional history exists HIB Vaccines Completed 11/23/1994, 05/1994, 01/01/1994 IPV Vaccines Completed 08/27/1998, 05/1994, 01/01/1994, Additional history exists MMR Vaccines Completed 08/27/1998, 11/23/1994 Meningococcal ACWY Vaccine Completed 09/12/2011, Hepatitis C Screening Completed 11/15/2020 HPV Vaccines Aged Out No longer eligi ble based on patient's age to complete this topic Meningococcal B Vaccine Aged Out No l onger eligible based on patient's age to complete this topic Pneumococcal Vaccine: Pediatrics (0 to 5 Years) and At-Risk Patients (6 to 49 Years) Aged Out No longer eligible based on patient's age to complete this topic RSV Immunization Patients Under 20 months Aged Out No longer eligible based on patient's age to complete this topic Varicella Vaccines Aged Out No longer eligible based on patient's age to complete this topic Insurance [facility] Care Teams News Internship Relationship Specialty Start Date End Date Physician, No Pcp PCP - General 09/12/24
--- OUTSIDE RECORDS SUMMARY | 2025-04-16 10:43 | XMS_ITS | Clinical Summary ---
Author Organization [facility] Address [address] [place] [address] Care Team Providers Care Vp Packaging Name Role Phone Unavailable Primary Care Provider [...] 81 04/27/2021 9:29 PM EDT Temperature 36.2 C (97.1 F) 04/27/2021 7:38 PM EDT Respiratory Rate 16 04/27/2021 7:38 PM EDT [...] patient's age to complete this topic Insurance [facility]
--- OUTSIDE RECORDS SUMMARY | 2025-04-16 10:43 | XMS_ITS | Data Portability ---
Author Organization [place] [facility], Allergy Address [address] [address] Assessment Encounter Date Assessment Date Assessment LastModified by Organization Details LastModified Time 03/06/2024 03/06/2024 Patient came for a third opinion regarding right angle of mandible mass. He has previously seen my colleague Dr. Ceballos, he has had a second opinion with tube turner in [place] Dr. Cruz and we are all in [...] although his MRI that was performed in [place] is not available for my review today. [...] Abnormal Flag Note LastModifiedBy Organization Detail LastModifiedTime 05/15/20 24 03/09/2023 imagi ng/di agnos tic resul t No observ ation record ed. [email or web address] Not Available 00:50:14 Result Notes None recorded. Problems Name Problem SNOMED Code Status Onset Date Resolution Date Notes Provider Name and Address Organization Details Recorded Time Disorder of salivary gland 72161157 Active 2022 Other diseases of salivary glands; Note: Date Diagnosed : 03/24/2023 5:12 PM (K11.8) Not Available [facility] 4 02:39:43 Pain of right temporoma ndibular joint [id number] 434671 Active 2022 Arthralgi a of right temporoma ndibular joint; Note: Date Diagnosed : 05/01/2023 10:48 AM (M26.621) Not Available [facility] 4 02:39:40 Facial swelling 629163648 Active 2023 PEGGY KEENE MD [address] [place] [address], [facility] [place], [address] , [facility] - [facility] 4 16:10:42 Problem Notes None recorded. Medical Equipment None Reported. [...] Updated DateTime 03/06/2024 180.34 cm 30.7 kg/m2 93313.32 g Hermelinda Ramon [place] - [facility] 03/06/2024 15:31:05 Social History None recorded. Functional Status None recorded. Mental Status None recorded. Family History Nothing Reported. Medical History No medical history recorded. Past Encounters Encounter ID Performer Location Encounter Start Date Encounter Closed Date Diagnosis/Indication Diagnosis SNOMED-CT Code Diagnosis ICD10 Code Diagnosis Note [id number] PEGGY KEENE MD [facility] [address] [address] 03/06/2024 15:10:15 03/06/2024 16:15:21 Facial swelling 638352180 R22.0 Health Concerns Section Related Observation LastModified by Organization Detai ls LastModified Time None Recorded Concern Status LastModified by Organization Details LastModified Time None Recorded Advance Directives Directive None Recorded Payers Insurance Date Sequence Insurance Name Policy Number Policy Lr Covered Member ID Lr Member ID Guarantor Name 04/23/2024 1 [facility] (MEDICAID HMO) [id number] Shoaib Muñoz [id number] Shoaib Muñoz Notes Date Note Type Note Provider Name and Address Organization Details Recorded Time 03/06/2024 text/html Around 10/2022 no felipe a lump behind right angle of jaw. Patient of Dr. 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 Over time he has begun to appreciate enlargement of the right parotid gland. He was last evaluated by Dr. 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 He underwent an additional imaging study 09/10/2023 CT facial with contrast at [facility] with atrophic left parotid gland and normal right parotid gland. 09/2023 MRI [facility] - results not available - was told it is inconclusive no pain in the neck,feels substantially larger PEGGY KEENE MD [address] [place] [address], [place], [address], [place] - [facility] 03/06/2024 16:13:07
--- OUTSIDE RECORDS SUMMARY | 2025-04-16 10:43 | XMS_ITS | Clinical Summary ---
Author Organization [facility] Address [address] [place] [address] Care Team Providers Care Rabbler Name Role Phone Patient, Has No Pcp [...] 66 11/27/2021 11:04 AM EST Temperature 36.9 C (98.5 F) 11/27/2021 11:04 AM EST Respiratory Rate 18 11/27/2021 11:04 AM EST [...] 2024 Alcohol/Substance Use Screening 09/25/2024 Influenza Vaccine (#1) 2025 9, 07/12/2008, 07/13/2007 DTaP,Tdap,and Td Vaccines (9 - Td or Tdap) 04/27/2031 04/27/2021, 10/24/2018, 08/27/2008, Additional history exists RSV Vaccine (60+ years old a nd patients) (1 - 1-dose 75+ series) 2068 Insurance [employer] Care Teams Rabbler Relationship Specialty Start Date End Date Patient, Has No Pcp Or Ref DO NOT EDIT THIS RECORD VIA PROVIDER ON THE FLY 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
--- OUTSIDE RECORDS SUMMARY | 2025-04-16 10:43 | XMS_ITS | Encounter Summary ---
Author Organization [facility] Address [address] [place], [place] [id number] Phone Care Team Providers Care Hoop Flaring Machine Operator Name Role Phone Unavailable Primary Care Provider Unavailabl e Encounter Details Date Type Department Care Team (Late st Contact Info) Description 10/14/2009 Documentation [facility] Family Medicine [address] [place] [address] Family Medicine, Physician [address] [place] [address] Social History Tobacco Use Types Packs/Day Years [...]
== END 2025-04-16 09:57 | disposition home or self-care (01) ==
LOC: HO.XRAY 09:56
PROVIDERS: PCP Internal Medicine Medical Oncology; Visit Provider Internal Medicine Medical Oncology
DX: M54.9 Dorsalgia, unspecified (principal)
CPT/HCPCS: 72100

== ENCOUNTER → 2025-04-16 10:05 | Outpatient (BNV) | payer OTHER, SELFPAY | PROVIDERS: PCP Internal Medicine Medical Oncology; Visit Provider Radiology Diagnostic Radiology | DX: M54.50 Low back pain, unspecified (principal) | CPT/HCPCS: 72100 ==

== ENCOUNTER 2025-06-17 12:44 | Outpatient (RCR) | payer OTHER, SELFPAY ==
--- NOTE | 2025-06-17 14:05 | P.CONTMS_ITS ---
History of Present Illness General Data Date of Service: 06/17/25 Reason for consult: tms eval History of Present Illness The patient is a 29-year-old male currently living with his aunt he was adopted from [place]. He is seen with his mother who has an advocate. Patient has been feeling down blue sad lethargic there is is a significant history of cycling mood states with elevated mood states even when not using substances like being on cocaine. The patient reports chronic depression with interspersed episodes of psychosis Patient seen psychiatric evaluation for TMS. The patient is self- referred he is seen by Rufus Patrick through [facility] and also has a therapist he sees every 3 weeks. The patient has a long psychiatric history appears to be most consistent with bipolar versus schizoaffective disorder and PTSD symptoms along with a significant past history of substance abuse currently on olanzapine 7.5 mg at bedtime Depakote extended release 1250 mg bedtime clonidine at bedtime Aristada 441 mg every 4 weeks sertraline 100 mg daily. The patient has been treated for cassandra psychosis delusional thoughts with a diagnosis in the past of bipolar disorder complicated by intermittent substance use including stimulant use marijuana use that may have contributed to multiple psychotic episodes. Patient reports ongoing anxiety and fatigue significant episodes of despair and depression Past Psychiatric History/Medication Trials: Past trials of Haldol hydroxyzine Risperdal Seroquel lithium Vraylar with multiple psychiatric hospitalizations patient has had recent hospitalizations [facility] for 3 weeks in August to September [place] 3 weeks in September with psychosis and substance use. His 1st hospitalization was in [place] as early 20s was hospitalized for cocaine depression and psychosis question cocaine into psychosis. [facility] Medical History (Updated 02/04/25 @ 08:16 by Tere Kitchen MD) No known health problems Family History: Patient adopted from [facility] no genetic history Social History: Patient had a difficult adolescents had been alienated from his adoptive parents and was living in his car for a period of time. 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 IM syringe (Aristada) benztropine 0.5 mg tablet 0.5 mg PO BID 01/30/2501/30 History buprenorphine 8 mg-naloxone 2 mg 3 film buccal DAILY 0 01/30/25 01/30/25 History sublingual film divalproex 250 mg tablet,delayed 250 mg PO QAM 5 01/30/25 History release divalproex 500 mg tablet,extended 1,000 mg PO BEDTIME 01/30/25 01/30/25 History release 24 hr melatonin 10 mg tablet 10 mg PO BEDTIME 01/30/25 History olanzapine 7.5 mg tablet 7.5 mg PO BEDTIME 01/30/25 0 01/30/25 History sennosides 17.2 mg tablet (Senokot 17.2 mg PO BID 05/1901/30/25 History Extra Strength) sertraline 50 mg tablet 50 mg PO DAILY 01/30/2505/19 History Allergies Allergies Allergy/AdvReac Type Severity Reaction Status Date / Time Unable to Assess Allergy Verified 01/31/25 23:42 Mental Status Exam Mental Status Exam Patient Appearance: Well Grooomed and Appropriate Patient Orientation: Person, Place, Time and Situation Level of Consciousness: Awake and Alert Patient Behavior: Appropriate, Guarded and Cooperative Mood Description: Constricted Affect Description: Flat Patient Cognition Impaired: No Ability to Follow Directions: Good Speech Pattern: Clear Hallucinations: None Delusions: Not Present Thought Process: Intact and Goal Oriented Thought Content: positive for [place] Judgement: Fair Judgement and Insight: Question delusional material related to God and the devil unclear reports poor motivation attention Assessment & Plan Assessment & Plan (1) Bipolar affective disorder, depressed, severe, with psychotic behavior: Status: Acute Code(s): F31.5 - Bipolar disorder, current episode depressed, severe, with psychotic features (2) Complex posttraumatic stress disorder: Status: Acute Code(s): F43.10 - Post-traumatic stress disorder, unspecified (3) Opioid dependence on agonist therapy: Status: Acute Code(s): F11.20 - Opioid dependence, uncomplicated Plan Patient is a 29-year-old male with a history what appears to be bipolar disorder marked by in the past chronic psychosis now treated with Aristada residual depressive symptoms unclear how much of his condition relates to chronic substance use which contributed to the multiple psychotic episodes. Given what appears to be bipolar diagnosis complicated by substance use now reportedly sober patient is not a TMS candidate given that diagnosis. He could be a ECT candidate however some of his ongoing difficulty with despair apathy anxiety might be partially related to Depakote and injectable Aristada. Would recommend structured settings such as day treatment educational setting possibly help from mass rehab. Patient might benefit from Latuda Caplyta Vraylar which were indicated for bipolar depression. There is certainly elements of trauma when living on the [address] and related to substance use and feeling lack of acceptance from his adopted family in the past. Patient denied at least superficially feeling that he had been targeted for his Malay background. [place] might also be a better choice than Depakote for someone with predominant depression will also consider Lamictal. Could not recommend TMS at this time Total time managing care of this patient today __60__ minutes.
== END 2025-08-11 15:30 | disposition home or self-care (01) ==
LOC: HO.PTMS 12:44
PROVIDERS: Visit Provider Psychiatry & Neurology Psychiatry
DX: F31.5 Bipolar disorder, current episode depressed, severe, with psychotic features (principal); F43.10 Post-traumatic stress disorder, unspecified; F11.20 Opioid dependence, uncomplicated